=== PATIENT | female | born 1940 ===

== ENCOUNTER 2016-09-27 17:01 | Emergency (ER) | payer OTHER ==
[2016-09-27 17:56] LABS: BASO % 0.6 % (0.0-2.0); EOS # 0.2 K/uL (0.0-0.7); EOS % 3.5 % (0.0-4.0); LYMPH # 2.2 K/uL (1.0-4.3); LYMPH % 32.1 % (20.0-40.0); MEAN CELL VOLUME 91.1 fL (81.0-99.0); MEAN CORPUSCULAR HEMOGLOBIN 30.2 pg (27.0-31.0); MEAN CORPUSCULAR HGB CONC 33.1 g/dL (33.0-37.0); MEAN PLATELET VOLUME 8.4 fL (7.2-11.7); MONO # 0.8 K/uL (0.0-0.8); MONO % 12.1 % (0.0-10.0); NRBC % 0.1 % (0.0-2.0); RED CELL DISTRIBUTION WIDTH 14.8 % (11.5-14.5); WHITE BLOOD COUNT 6.7 K/uL (4.8-10.8)
[2016-09-27 18:05] LABS: CHLORIDE 101 mmol/L (98-107); SODIUM 139 mmol/L (132-148)
[2016-09-27 18:06] LABS: POTASSIUM 4.4 mmol/L (3.6-5.2)
[2016-09-27 18:07] LABS: CARBON DIOXIDE 30 mmol/L (22-30); CHOLESTEROL 207 mg/dL (0-199); GFR AFRICAN-AMERICAN > 60
[2016-09-27 18:08] LABS: ALB/GLOB RATIO 1.5 (1.0-2.1); ALKALINE PHOSPHATASE 55 U/L (38-126); ALT/SGPT 24 U/L (9-52); AST/SGOT 23 U/L (14-36); BILIRUBIN,TOTAL 0.5 mg/dL (0.2-1.3); BLOOD UREA NITROGEN 24 mg/dL (7-17); CALCIUM 8.8 mg/dl (8.6-10.4); GLUCOSE,RANDOM 92 mg/dL (65-105)
[2016-09-27 18:11] LABS: INR 1.2
--- NOTE | 2016-09-27 18:13 | CT ---
PROCEDURE: CT HEAD WITHOUT CONTRAST. HISTORY: dizzy x 5 days COMPARISON: None available. TECHNIQUE: Axial computed tomography images were obtained through the head/brain without intravenous contrast. Radiation dose: Total exam DLP = 1703.67 mGy-cm. This CT exam was performed using one or more of the following dose reduction techniques: Automated exposure control, adjustment of the mA and/or kV according to patient size, and/or use of iterative reconstruction technique. FINDINGS: HEMORRHAGE: No intracranial hemorrhage. BRAIN: No mass effect or edema. Mild atrophy and [id number] white matter changes. VENTRICLES: Unremarkable. No hydrocephalus. CALVARIUM: Unremarkable. PARANASAL SINUSES: Unremarkable as visualized. No significant inflammatory changes. MASTOID AIR CELLS: Unremarkable as visualized. No inflammatory changes. OTHER FINDINGS: None. IMPRESSION: Limited study due to patient's motion. No evidence of acute intracranial hemorrhage. 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
--- NOTE | 2016-09-27 18:50 | C.PDOC ---
History Of Present Illness 75 y/o female presents to the emergency department with complains of dizziness for the past 5 days, worse with climbing stairs. Pt denies headache, chest pain , fever, vomiting, SOB or any other complaints. Time Seen by Provider: 09/27/16 17:07 Chief Complaint (Nursing): Dizziness/Lightheaded History Per: Patient History/Exam Limitations: no limitations Onset/Duration Of Symptoms: Days Current Symptoms Are (Timing): Still Present Fall Associated With With Symptoms: No Severity: Mild Recent travel outside of the [place]: No - Symptoms Of CVA Recent Head Trauma: No Past Medical History Reviewed: Historical Data, Nursing Documentation, Vital Signs Vital Signs: Last Vital Signs Temp 98.6 F 09/27/16 17:05 Pulse 62 09/27/16 20:49 Resp 15 09/27/16 20:49 BP 146/54 L 09/27/16 20:49 Pulse Ox 96 09/27/16 21:58 - Medical History PMH: Atrial Fibrillation, Cardia Arrhythmia (unknown tachycardia), HTN, Pneumonia Family History: States: Unknown Family Hx - Social History Hx Alcohol Use: No Hx Substance Use: No Review Of Systems Except As Marked, All Systems Reviewed And Found Negative. Constitutional: Negative for: Fever, Chills Cardiovascular: Negative for: Chest Pain Respiratory: Negative for: Shortness of Breath Gastrointestinal: Negative for: Vomiting Neurological: Positive for: Dizziness. Negative for: Headache Physical Exam - Physical Exam Appears: Non-toxic, No Acute Distress, Other (obese) Skin: Warm, Dry, No Rash Head: Atraumatic, Normacephalic Eye(s): bilateral: Normal Inspection, PERRL, EOMI Neck: Normal, Normal ROM, Supple Chest: Symmetrical, No Tenderness Cardiovascular: Rhythm Regular, No Murmur Respiratory: Normal Breath Sounds, No Rales, No Rhonchi, No Wheezing Gastrointestinal/Abdominal: Normal Exam, Soft, No Tenderness Extremity: Normal ROM Extremity: Bilateral: Atraumatic Neurological/Psych: Oriented x3, Normal Speech, Normal Cognition ED Course And Treatment - Laboratory Results Result Diagrams: 09/27/16 17:42 09/27/16 17:42 Lab Interpretation: Normal (trop neg.) ECG: Interpreted By Ks ECG Rhythm: Sinus Rhythm ECG Interpretation: Normal Rate From EC O2 Sat by Pulse Oximetry: 96 (room air) Pulse Ox Interpretation: Normal - Radiology CXR: Interpreted by Me CXR Interpretation: Yes: No Acute Disease, Other (? mild CHF vs body habitus.) - CT Scan/US CT head Other Rad Studies (CT/US): Read By Radiologist, Radiology Report Reviewed CT/US Interpretation: IMPRESSION: Limited study due to patient's motion. No evidence of acute intracranial hemorrhage. 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 Progress Note: Plan: EKG, CT head, labs, CXR, meclizine, pepcid, zofran, BGL Reevaluation Time: 19:27 Reassessment Condition: Improved - Physician Consult Information Outcome Of Conversation: 193: d/w [facility]- Dr. Ortega ok to Tele obs. Medical Decision Making Medical Decision Making: dizziness, sob, SALAZAR may be cardiac or neuro in nature. w/u neg to this point. consider Cardiac and Neuro evals. 2199: evaled by Medicine- defer adm now and opt f/u to be arranged. Disposition Doctor Will See Patient In The: Hospital Counseled Patient/Family Regarding: Studies Performed, Diagnosis - Disposition Disposition: HOME/ ROUTINE Disposition Time: 19:28 Condition: GOOD - Clinical Impression Clinical Impression: Chest discomfort, Dizzinesses - Scribe Statement The provider has reviewed the documentation as recorded by the Maynor Pitts Provider Attestation: All medical record entries made by the Maynor were at my direction and personally dictated by me. I have reviewed the chart and agree that the record accurately reflects my personal performance of the history, physical exam, medical decision making, and the department course for this patient. I have also personally directed, reviewed, and agree with the discharge instructions and disposition.
[2016-09-27 19:19] LABS: RBC URINE < 1 /hpf (0-3); URINE BILIRUBIN NEGATIVE (NEGATIVE); URINE BLOOD NEGATIVE (NEGATIVE); URINE COLOR Yellow (YELLOW); URINE GLUCOSE (UA) NORMAL (Normal); URINE KETONE NEGATIVE (NEGATIVE); URINE LEUKOCYTE ESTERASE NEG Leu/uL (Negative); URINE PROTEIN NEGATIVE (NEGATIVE); URINE UROBILINOGEN NORMAL mg/dL (0.2-1.0); WBC URINE 2 /hpf (0-5)
--- NOTE | 2016-09-27 19:24 | C.PDOC ---
Time Seen by Provider: 09/27/16 17:07 Chief Complaint (Nursing): Dizziness/Lightheaded Past Medical History Vital Signs: Last Vital Signs Temp 98.6 F 09/27/16 17:05 Pulse 70 09/27/16 17:05 Resp 20 09/27/16 17:05 BP 138/69 09/27/16 17:05 Pulse Ox 96 09/27/16 17:05 - Medical History PMH: Atrial Fibrillation, Cardia Arrhythmia (unknown tachycardia), HTN, Pneumonia Family History: States: Unknown Family Hx - Social History Hx Alcohol Use: No Hx Substance Use: No ED Course And Treatment - Laboratory Results Result Diagrams: 09/27/16 17:42 09/27/16 17:42 O2 Sat by Pulse Oximetry: 96
[2016-09-27] MEDS ORDERED: Aspirin 325 mg EC Tablets PO STA (19:42)
--- NOTE | 2016-09-27 20:52 | CP.PCM.HP ---
History of Present Illness - History of Present Illness History of Present Illness: CC - "Headache x 5 days" HPI - 75 year old female with a past medical history Afib, cataracts, osteoporosis, hypertension present today complaining of dizziness and headache for 5 days. She states this is on and off. She denies acute visual changes but states she has bad vision due to cataracts and was evaluation by an administrative resources associate recently. She said she feeling tired and admits to shortness of breath with exertion such as walking a few blocks or going up stairs. She denies swelling in the legs. Per daughter she has had a nonproductive cough today. She admits to generalized weakness. She denies recent illlness, sick contacts, fever, chills, chest pain, palpitations, shortness of breath, abd pain, vomiting, diarrhea/constipation, numbness or tingling. PMHx - Afib, cataracts, osteoporosis, hypertension Surg - denies Fam Hx - sister has vaginal cancer, ho hx of stroke, heart disease, NC, DM Meds - Xarelto 20mg PO daily. Metorpolol 25 mg PO daily, Bisphophenate weekly on Fridays Allergies - NKDA Social - denies tobacco, alcohol, or drug use. From the [place]. Lives here with her daughter for about 6 months out of the year PMD - none but has been seen at 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 absent: Chest Pain, Chest Pain at Rest, Leg Edema, Palpitations, Syncope - Respiratory Respiratory: Cough (nonproductive), Dyspnea on Exertion. absent: Dyspnea - Gastrointestinal Gastrointestinal: absent: Abdominal Pain, Constipation, Diarrhea, Nausea, Vomiting - Genitourinary Genitourinary: absent: Change in Urinary Stream, Difficulty Urinating - Musculoskeletal Musculoskeletal: absent: Numbness, Tingling Additional comments: R knee pain, chronic pains from arthritis - Neurological Neurological: Dizziness, Headaches. absent: Numbness, Syncope, Tingling, Weakness Past Patient History - Infectious Disease Hx of Infectious Diseases: None - Past Social History Smoking Status: Never Smoked - CARDIAC Hx Atrial Fibrillation: Yes Hx Cardia Arrhythmia: Yes (unknown tachycardia) Hx Hypertension: Yes - PULMONARY Hx Pneumonia: Yes - PSYCHIATRIC Hx Substance Use: No - SURGICAL HISTORY Hx Surgeries: No Meds Allergies/Adverse Reactions: Allergies Allergy/AdvReac Type Severity Reaction Status Date / Time No Known Allergies Allergy Verified 09/27/16 17:25 Results - Vital Signs Recent Vital Signs: Last Vital Signs Temp 98.6 F 09/27/16 17:05 Pulse 70 09/27/16 17:05 Resp 20 09/27/16 17:05 BP 138/69 09/27/16 17:05 Pulse Ox 96 09/27/16 19:43 - Labs Result Diagrams: 09/27/16 17:42 09/27/16 17:42 Assessment & Plan - Assessment and Plan (Free Text) Assessment: 75 year old female with a past medical history of Afib, HTN, osteoporosis, and arthritis presents for dizziness and LIM for 5 days: Plan: Atrial fibrillation Denies palpitations or chest pain on examination but per ED complained of chest discomfort NSR on Monitor Troponin negative, will follow up with serial troponins and EKG EKG - NSR at 66 bpm HbA1c 5.9 Tchol 207, Trig 123, LDL 136, HDL 37 f/u Echo f/u orthostatic vitals Xarelto 20mg PO - takes in the mornings Admit to telemetry f/u am labs, TSH Free T4 Hypertension controlled monitor Home med: Metoprolol 25 mg PO daily Will hold as patient is dizzy and HR is in the low 60s Osteoporosis Tylenol prn pain Takes bisphosphenate once weekly on Friday mornings - took dose today Prophylactic measures GI - not indicated DVT - on Xarelto daily Heart healthy diet
[2016-09-27 22:23] VITALS: BP 144/64; PULSE 64; RESP 14; TEMP 97.8; O2SAT 99
--- NOTE | 2016-09-28 19:56 | RAD ---
HISTORY: dizzy COMPARISON: No prior. FINDINGS: LUNGS: Poor inspiration with low lung volumes and crowded bronchovascular markings and minor bibasilar atelectasis right greater than left. Right lower lobe infiltrate not excluded therefore followup radiographs recommended PLEURA: No significant pleural effusion identified, no pneumothorax apparent. CARDIOVASCULAR: Heart is borderline/mildly enlarged OSSEOUS STRUCTURES: No significant abnormalities. VISUALIZED UPPER ABDOMEN: Normal. OTHER FINDINGS: None. IMPRESSION: Poor inspiration with low lung volumes and crowded bronchovascular markings and minor bibasilar atelectasis right greater than left. Right lower lobe infiltrate could be excluded with followup radiographs. . This report was placed folder in PA review for followup.
--- NOTE | 2016-09-30 12:59 | CARD ---
APPROVED REPORT EKG Measurement Heart [id number] <Conclusion> Normal sinus rhythm Normal ECG
== END 2016-09-27 22:22 | disposition left against medical advice (07) ==
LOC: C.ER 17:01 → UNDOADMOB 19:41 → C.9E 19:41 → C.5T 22:04 → C.9E 22:04 → C.5T 22:17 → C.9E 22:17 → C.ER 22:22 → C.9E 09-28 18:38 → C.5T 09-28 18:38
DX: R42 Dizziness and giddiness (principal); R07.89 Other chest pain
CPT/HCPCS: 70450; 71010; 80053; 80061; 81001; 82948; 83036; 84484; 85025; 85610; 85730; 93005; 96374; 96375; 99285; J2405

== ENCOUNTER 2016-10-02 14:51 | Emergency (ER) | payer OTHER ==
[2016-10-02 14:59] VITALS: BP 120/76; PULSE 74; RESP 18; TEMP 98.2; O2SAT 100
--- NOTE | 2016-10-02 15:25 | C.PDOC ---
History Of Present Illness 75 y/o female presents to ED who was seen and evaluated in the ER last Friday ( 5 days ago) for SOB, dizziness, lightheadedness, nausea - full workup including CXR, discharged home with viral syndrome dx. Since then, patient reports symptoms have resolved, and that she feels much better. However, patient reports she got a phone call today informing her that the chest x-ray could not rule out RLL infiltrate. She denies any physical complaints on arrival; denies cough, congestion, fever, chills, or other associated symptoms. Time Seen by Provider: 10/02/16 15:15 Chief Complaint (Nursing): Abnormal Labs History Per: Patient History/Exam Limitations: no limitations Current Symptoms Are (Timing): Gone Reports Recently: Seen In ED Recent travel outside of the [place]: No Past Medical History Reviewed: Historical Data, Nursing Documentation, Vital Signs Vital Signs: Last Vital Signs Temp 98.2 F 10/02/16 14:58 Pulse 74 10/02/16 14:58 Resp 18 10/02/16 14:58 BP 120/76 10/02/16 14:58 Pulse Ox 100 10/02/16 15:26 - Medical History PMH: Atrial Fibrillation, Cardia Arrhythmia (unknown tachycardia), HTN, Pneumonia Family History: States: Unknown Family Hx - Social History Hx Alcohol Use: No Hx Substance Use: No Review Of Systems Constitutional: Negative for: Fever, Chills ENT: Negative for: Nose Congestion Cardiovascular: Negative for: Chest Pain Respiratory: Negative for: Cough, Shortness of Breath, Wheezing Gastrointestinal: Negative for: Nausea, Vomiting, Abdominal Pain Skin: Negative for: Rash Neurological: Negative for: Headache, Dizziness Physical Exam - Physical Exam Appears: Non-toxic, No Acute Distress Skin: Normal Color, Warm, Dry Head: Atraumatic, Normacephalic Oral Mucosa: Moist Chest: Symmetrical Cardiovascular: Rhythm Regular Respiratory: Normal Breath Sounds, No Rales, No Rhonchi, No Wheezing Gastrointestinal/Abdominal: Soft, No Tenderness, No Guarding, No Rebound Back: Normal Inspection Extremity: Normal ROM, Capillary Refill (< 2 sec. ) Neurological/Psych: Oriented x3, Normal Speech, Normal Cognition ED Course And Treatment O2 Sat by Pulse Oximetry: 100 (RA) Pulse Ox Interpretation: Normal - Radiology CXR: Viewed By Me, Read By Radiologist CXR Interpretation: Yes: No Acute Disease Disposition - Disposition Disposition: HOME/ ROUTINE Disposition Time: 16:01 Condition: IMPROVED Instructions: Normal Exam (ED) - Clinical Impression Clinical Impression: Normal exam - Scribe Statement The provider has reviewed the documentation as recorded by the Maynor Minor Provider Attestation: All medical record entries made by the Maynor were at my direction and personally dictated by me. I have reviewed the chart and agree that the record accurately reflects my personal performance of the history, physical exam, medical decision making, and the department course for this patient. I have also personally directed, reviewed, and agree with the discharge instructions and disposition.
--- NOTE | 2016-10-02 15:59 | RAD ---
HISTORY: follow up CXR r/o RLL infiltrate COMPARISON: 09/27/2016 TECHNIQUE: Chest PA and lateral FINDINGS: LUNGS: No active pulmonary disease. PLEURA: No significant pleural effusion identified. No pneumothorax apparent. CARDIOVASCULAR: Normal. OSSEOUS STRUCTURES: No significant abnormalities. VISUALIZED UPPER ABDOMEN: Normal. OTHER FINDINGS: None. IMPRESSION: No active disease.
== END 2016-10-02 16:16 | disposition home or self-care (01) ==
LOC: C.ER 14:51
DX: Z00.00 Encounter for general adult medical examination without abnormal findings (principal)

== ENCOUNTER 2016-10-27 11:44 | Observation (INO) | payer OTHER, SELFPAY ==
[2016-10-27 12:02] VITALS: BMI 33.3
[2016-10-27 12:39] LABS: BASO % 0.5 % (0.0-2.0); EOS # 0.2 K/uL (0.0-0.7); EOS % 2.3 % (0.0-4.0); HEMATOCRIT 45.7 % (34.0-47.0); LYMPH # 2.1 K/uL (1.0-4.3); LYMPH % 26.5 % (20.0-40.0); MEAN CELL VOLUME 92.1 fL (81.0-99.0); MEAN CORPUSCULAR HEMOGLOBIN 30.2 pg (27.0-31.0); MEAN CORPUSCULAR HGB CONC 32.7 g/dL (33.0-37.0); MEAN PLATELET VOLUME 8.8 fL (7.2-11.7); MONO # 0.9 K/uL (0.0-0.8); MONO % 10.9 % (0.0-10.0); RED CELL DISTRIBUTION WIDTH 14.6 % (11.5-14.5)
[2016-10-27 12:47] LABS: CHLORIDE 106 mmol/L (98-107)
[2016-10-27 12:48] LABS: SODIUM 147 mmol/L (132-148)
[2016-10-27 12:49] LABS: POTASSIUM 4.4 mmol/L (3.6-5.2)
[2016-10-27 12:51] LABS: ALB/GLOB RATIO 1.1 (1.0-2.1); ALKALINE PHOSPHATASE 54 U/L (38-126); ALT/SGPT 26 U/L (9-52); AST/SGOT 27 U/L (14-36); BILIRUBIN,TOTAL 0.4 mg/dL (0.2-1.3); BLOOD UREA NITROGEN 23 mg/dL (7-17); CARBON DIOXIDE 30 mmol/L (22-30); GFR AFRICAN-AMERICAN > 60; GLUCOSE,RANDOM 116 mg/dL (65-105); TOTAL PROTEIN 7.4 g/dL (6.3-8.3)
[2016-10-27 12:52] LABS: CALCIUM 9.8 mg/dl (8.6-10.4)
--- NOTE | 2016-10-27 13:02 | C.PDOC ---
History Of Present Illness Patient is a 75 y/o female, whose PMHx includes Afib, that presents to the ED for evaluation of palpitations since last night. Patient states that she woke up this morning feeling weak, and lightheaded. Patient also reports shortness of breath with excertion, but denies any chest pain. Patient states she is compliant with her Xarelto, and Metoprolol 25mg once a day. Otherwise, denies any fever, chills, cough, swelling, abdominal pain, nausea, vomiting, or any other associated symptoms at this time. Time Seen by Provider: 10/27/16 12:15 Chief Complaint (Nursing): Palpitations History Per: Patient History/Exam Limitations: no limitations Onset/Duration Of Symptoms: Days (1) Current Symptoms Are (Timing): Still Present Associated Symptoms: denies: Chest Pain, Blurred Vision, Focal Weakness, Headache Recent travel outside of the [place]: No Additional History Per: Patient Past Medical History Reviewed: Historical Data, Nursing Documentation, Vital Signs Vital Signs: Last Vital Signs Temp 98.2 F 10/27/16 12:19 Pulse 118 H 10/27/16 12:55 Resp 12 10/27/16 12:55 BP 115/58 L 10/27/16 12:55 Pulse Ox 97 10/27/16 13:13 - Medical History PMH: Atrial Fibrillation, Cardia Arrhythmia (unknown tachycardia), HTN, Pneumonia Family History: States: Unknown Family Hx - Social History Hx Alcohol Use: No Hx Substance Use: No - Immunization History Hx Tetanus Toxoid Vaccination: No Hx Influenza Vaccination: No Hx Pneumococcal Vaccination: No Review Of Systems Except As Marked, All Systems Reviewed And Found Negative. Constitutional: Positive for: Weakness. Negative for: Fever, Chills Cardiovascular: Positive for: Palpitations, Light Headedness. Negative for: Chest Pain Respiratory: Positive for: SOB with Excertion. Negative for: Cough Gastrointestinal: Negative for: Nausea, Vomiting, Abdominal Pain Neurological: Negative for: Headache, Dizziness Physical Exam - Physical Exam Appears: Non-toxic, No Acute Distress Skin: Normal Color, Warm, Dry Head: Atraumatic, Normacephalic Eye(s): bilateral: Normal Inspection, EOMI Neck: Normal ROM, Supple Chest: Symmetrical, No Tenderness Cardiovascular: Rhythm Irregular (irregularly irregular) Respiratory: Normal Breath Sounds, No Rales, No Rhonchi, No Wheezing Gastrointestinal/Abdominal: Soft, No Tenderness, Other (obese abdomen) Extremity: Normal ROM, No Pedal Edema, Capillary Refill (<2 sec.), No Deformity , No Swelling Neurological/Psych: Oriented x3, Normal Speech, Normal Cognition ED Course And Treatment - Laboratory Results Result Diagrams: 10/27/16 12:30 10/27/16 12:30 Lab Interpretation: Abnormal Interpretation Of Abnormal: BUN 23, BNP 2650, Troponnin normal, TSH normal. ECG: Interpreted By Me ECG Rhythm: Atrial Fibrillation (with rapid ventricular responseQ wave V1 c/w possible old anterior infarct.) O2 Sat by Pulse Oximetry: 97 (on RA) Pulse Ox Interpretation: Normal - Radiology CXR: Interpreted by Me CXR Interpretation: Yes: Cardiomegaly (with vascular congestion) Progress Note: Labs, EKG ordered and reviewed. Patient was given IV Cardizem in the ER. Reevaluation Time: 13:11 Reassessment Condition: Improved (Heart rate decresed after Cardizem 10mg IVP. BP initially decresed to 86/50 but improved with normal saline bolus.) - Physician Consult Information Time Consulting Physician Contacted: 13:12 Physician Contacted: Garrett Parks Outcome Of Conversation: Patient to be admitted for rapid atrial fibrillation. Disposition - Disposition Disposition: HOSPITALIZED Disposition Time: 13:12 Condition: IMPROVED - POA Present On Arrival: None - Clinical Impression Clinical Impression: Paroxysmal atrial fibrillation with rapid ventricular response - Scribe Statement The provider has reviewed the documentation as recorded by the Maynor Arshad Provider Attestation: All medical record entries made by the Emilianoibdave were at my direction and personally dictated by me. I have reviewed the chart and agree that the record accurately reflects my personal performance of the history, physical exam, medical decision making, and the department course for this patient. I have also personally directed, reviewed, and agree with the discharge instructions and disposition.
[2016-10-27 13:03] LABS: RBC URINE 2 /hpf (0-3); URINE BILIRUBIN NEGATIVE (NEGATIVE); URINE BLOOD NEGATIVE (NEGATIVE); URINE COLOR Yellow (YELLOW); URINE GLUCOSE (UA) NORMAL (Normal); URINE KETONE NEGATIVE (NEGATIVE); URINE LEUKOCYTE ESTERASE 2+ Leu/uL (Negative); URINE PROTEIN NEGATIVE (NEGATIVE); URINE UROBILINOGEN NORMAL mg/dL (0.2-1.0); WBC URINE 5 /hpf (0-5)
[2016-10-27 13:22] LABS: THYROID STIMULATING HORMONE 0.61 mIU/L (0.46-4.68)
[2016-10-27] MEDS ORDERED: Digoxin 250 mcg (0.25 mg) Tab PO STA (13:43)
--- NOTE | 2016-10-27 14:03 | RAD ---
HISTORY: atrial fib COMPARISON: 10/02/2016 FINDINGS: LUNGS: There is mild pulmonary venous congestion. No focal consolidation PLEURA: No significant pleural effusion identified, no pneumothorax apparent. CARDIOVASCULAR: There is persistent mild cardio OSSEOUS STRUCTURES: No significant abnormalities. VISUALIZED UPPER ABDOMEN: Normal. OTHER FINDINGS: None. IMPRESSION: No acute findings. Mild pulmonary venous congestion and mild cardiomegaly.
[2016-10-27] MEDS ORDERED: Digoxin 500 mcg/2ml (0.5 mg/2ml) Inj IVP ONE (14:06)
[2016-10-27] MEDS ORDERED: Digoxin 500 mcg/2ml (0.5 mg/2ml) Inj ONE (14:25)
[2016-10-27 15:46] LABS: CHOLESTEROL 182 mg/dL (0-199)
[2016-10-27 16:05] LABS: INR 1.5
[2016-10-27 16:22] LABS: CHOLESTEROL 151 mg/dL (0-199)
[2016-10-27] MEDS ORDERED: Digoxin 250 mcg (0.25 mg) Tab PO SCH (18:00)
[2016-10-27 18:04] VITALS: PULSE 116
--- NOTE | 2016-10-27 19:03 | CP.PCM.CON ---
History of Present Illness - History of Present Illness History of Present Illness: 75 year old with HTN, prior diagnosis of paroxysmal A fib, admitted with palpitation, a fib, on xarelto, , 2 mos ago echo with nl LV, NL TSH now, rate controlled, d/c digoxin, observe Review of Systems - Review of Systems Systems not reviewed;Unavailable: Unstable Vital Signs - Constitutional Constitutional: Anorexia, Weakness - EENT Eyes: absent: Discharge Ears: absent: Ear Discharge Nose/Mouth/Throat: absent: Epistaxis - Cardiovascular Cardiovascular: Palpitations. absent: Acrocyanosis, Chest Pain, Diaphoresis, Leg Edema, Syncope - Respiratory Respiratory: Cough. absent: Dyspnea, Hemoptysis, Pain on Inspiration - Gastrointestinal Gastrointestinal: absent: Abdominal Pain, Cramping, Diarrhea, Vomiting - Genitourinary Genitourinary: absent: Change in Urinary Stream Past Patient History - Infectious Disease Hx of Infectious Diseases: None - Past Social History Smoking Status: Never Smoked - CARDIAC Hx Atrial Fibrillation: Yes Hx Cardia Arrhythmia: Yes (unknown tachycardia) Hx Hypertension: Yes - PULMONARY Hx Pneumonia: Yes - PSYCHIATRIC Hx Substance Use: No - SURGICAL HISTORY Hx Surgeries: No - ANESTHESIA Hx Anesthesia: No Meds Allergies/Adverse Reactions: Allergies Allergy/AdvReac Type Severity Reaction Status Date / Time No Known Allergies Allergy Verified 10/27/16 12:15 - Medications Medications: Current Medications Diltiazem HCl (Cardizem) 30 mg PO QID PENDING SALE TO [facility] Last Admin: 10/27/16 18:02 Dose: 30 mg Metoprolol Tartrate (Lopressor) 50 mg PO BID PENDING [facility] Rivaroxaban (Xarelto) 20 mg PO DAILY [facility]ENDING [facility] Last Admin: 10/27/16 15:50 Dose: Not Given Rosuvastatin Calcium (Crestor) 10 mg PO [facility] Physical Exam - Constitutional Appears: Non-toxic - Head Exam Head Exam: ATRAUMATIC - Eye Exam Eye Exam: EOMI - ENT Exam ENT Exam: Mucous Membranes Moist - Neck Exam Neck exam: Negative for: Lymphadenopathy, Thyromegaly - Respiratory Exam Respiratory Exam: Clear to Auscultation Bilateral. absent: Rales - Cardiovascular Exam Cardiovascular Exam: Irregular Rhythm, Systolic Murmur - GI/Abdominal Exam GI & Abdominal Exam: Normal Bowel Sounds. absent: Organomegaly - Rectal Exam Rectal Exam: Deferred - Extremities Exam Extremities exam: Positive for: normal capillary refill. Negative for: calf tenderness - Neurological Exam Neurological exam: Alert, Oriented x3 - Psychiatric Exam Psychiatric exam: Normal Mood - Skin Skin Exam: Dry Results - Vital Signs Recent Vital Signs: Last Vital Signs Temp 97.3 F L 10/27/16 17:19 Pulse 65 10/27/16 17:19 Resp 20 10/27/16 17:19 BP 119/66 10/27/16 17:19 Pulse Ox 95 10/27/16 17:19 - Labs Result Diagrams: 10/27/16 12:30 10/27/16 12:30 Labs: Laboratory Results - last 24 hr 10/27/16 10/27/16 15:50 15:50 PT 17.1 H INR 1.5 APTT 43 H Total Creatine Kinase 33 CK-MB (Mass) 0.41 Troponin I, Quant < 0.0120 Triglycerides 267 H Cholesterol 151 LDL Cholesterol Direct 94 HDL Cholesterol 23 L Assessment & Plan (1) Paroxysmal atrial fibrillation with rapid ventricular response Status: Acute Comment: rate controlled, d/c dig, b dario
[2016-10-27] MEDS ORDERED: Pantoprazole 40 mg EC Tab PO ONE (22:45)
--- NOTE | 2016-10-27 23:34 | CP.PCM.HP ---
History of Present Illness - History of Present Illness History of Present Illness: CC: Dizziness, Light headedness, SOB with exertion Patient is a 75 y/o female, whose PMHx includes Afib, that presents to the ED for evaluation of palpitations since last night. Patient states that she woke up this morning feeling weak, and lightheaded. Patient also reports shortness of breath with excertion, but denies any chest pain. Patient states she is compliant with her Xarelto, and Metoprolol 25mg once a day. Otherwise, denies any fever, chills, cough, swelling, abdominal pain, nausea, vomiting, or any other associated symptoms at this time.pt was in rapid A.fib when i saw in ER , hypotensive, was given fluid blous, initially was given cardizem then digoxin and pt responded Present on Admission - Present on Admission Any Indicators Present on Admission: Yes History of DVT/PE: No History of Uncontrolled Diabetes: No Review of Systems - Review of Systems Systems not reviewed;Unavailable: Acuity of Condition - Constitutional Constitutional: Fatigue, Weakness - EENT Eyes: absent: As Per HPI, Blind Spots, Blurred Vision, Change in Vision, Decreased Night Vision, Diplopia, Discharge, Dry Eye, Exophthalmos, Floaters, Irritation, Itchy Eyes, Loss of Peripheral Vision, Pain, Photophobia, Requires Corrective Lenses, Sees Flashes, Spots in Vision, Tunnel Vision, Other Visual Disturbances, Loss of Vision, Other - Cardiovascular Cardiovascular: Dyspnea, Dyspnea on Exertion, Lightheadedness - Respiratory Respiratory: absent: As Per HPI, Cough, Dyspnea, Hemoptysis, Dyspnea on Exertion , Wheezing, Snoring, Stridor, Pain on Inspiration, Chest Congestion, Excessive Mucous Production, Change in Mucous Color, Pain with Coughing, Other - Gastrointestinal Gastrointestinal: absent: As Per HPI, Abdominal Pain, Belching, Bloating, Change in Bowel Habits, Change in Stool Character, Coffee Ground Emesis, Constipation, Cramping, Diarrhea, Dyspepsia, Dysphagia, Early Satiety, Excessive Flatus, Fecal Incontinence, Heartburn, Hematemesis, Hematochezia, Loose Stools, Melena, Nausea, Odynophagia, Temesmus, Vomiting, Other - Genitourinary Genitourinary: absent: As Per HPI, Change in Urinary Stream, Difficulty Urinating, Dysuria, Flank Pain, Hematuria, Pyuria, Nocturia, Urinary Incontinence, Urinary Frequency, Urinary Hesitance, Urinary Urgency, Voiding Freq/Small Amts, Freq UTI, Hx Renal/Bladder Calculi, Hx /Renal Surgery, Bladder Distension, Other Past Patient History - Infectious Disease Hx of Infectious Diseases: None - Past Medical History & Family History Past Medical History?: Yes - Past Social History Smoking Status: Never Smoked - CARDIAC Hx Cardiac Disorders: Yes Hx Atrial Fibrillation: Yes Hx Cardia Arrhythmia: Yes (unknown tachycardia) Hx Hypertension: Yes - PULMONARY Hx Respiratory Disorders: Yes Hx Pneumonia: Yes - NEUROLOGICAL Hx Neurological Disorder: No - HEENT Hx HEENT Problems: No - RENAL Hx Chronic Kidney Disease: No - ENDOCRINE/METABOLIC Hx Endocrine Disorders: No - HEMATOLOGICAL/ONCOLOGICAL Hx Blood Disorders: No - INTEGUMENTARY Hx Dermatological Problems: No - MUSCULOSKELETAL/RHEUMATOLOGICAL Hx Musculoskeletal Disorders: No - GASTROINTESTINAL Hx Gastrointestinal Disorders: No - GENITOURINARY/GYNECOLOGICAL Hx Genitourinary Disorders: No - PSYCHIATRIC Hx Psychophysiologic Disorder: No Hx Substance Use: No - SURGICAL HISTORY Hx Surgeries: No - ANESTHESIA Hx Anesthesia: No Meds Home Medications: Home Medication List Medication Instructions Recorded Confirmed Type Metoprolol Tartrate [Lopressor] 50 mg PO BID #60 tab 10/28/16 Rx diltiaZEM CD [Cardizem CD] 120 mg PO DAILY #30 c24 10/28/16 Rx Allergies/Adverse Reactions: Allergies Allergy/AdvReac Type Severity Reaction Status Date / Time No Known Allergies Allergy Verified 10/27/16 12:15 Physical Exam - Constitutional Appears: No Acute Distress - Head Exam Head Exam: ATRAUMATIC, NORMAL INSPECTION, NORMOCEPHALIC - Eye Exam Eye Exam: EOMI, Normal appearance, PERRL Pupil Exam: NORMAL ACCOMODATION, PERRL - Respiratory Exam Respiratory Exam: Clear to Auscultation Bilateral, NORMAL BREATHING PATTERN - Cardiovascular Exam Cardiovascular Exam: Irregular Rhythm, +S1, +S2 - GI/Abdominal Exam GI & Abdominal Exam: Normal Bowel Sounds, Soft. absent: Tenderness - Rectal Exam Rectal Exam: NORMAL INSPECTION - Neurological Exam Neurological exam: Alert, CN II-XII Intact, Normal Gait, Oriented x3, Reflexes Normal Results - Vital Signs Recent Vital Signs: Last Vital Signs Temp 97.3 F L 10/27/16 17:19 Pulse 96 H 10/27/16 22:00 Resp 16 10/27/16 18:02 BP 127/74 10/27/16 22:00 Pulse Ox 95 10/27/16 17:19 - Labs Result Diagrams: 10/27/16 12:30 10/27/16 12:30 Labs: Laboratory Results - last 24 hr 10/27/16 10/27/16 15:50 15:50 PT 17.1 H INR 1.5 APTT 43 H Total Creatine Kinase 33 CK-MB (Mass) 0.41 Troponin I, Quant < 0.0120 Triglycerides 267 H Cholesterol 151 LDL Cholesterol Direct 94 HDL Cholesterol 23 L Assessment & Plan (1) Dizzinesses Status: Acute (2) Paroxysmal atrial fibrillation with rapid ventricular response Status: Acute
[2016-10-28 00:57] VITALS: RESP 20
[2016-10-28 08:03] VITALS: TEMP 97.4; O2SAT 97
[2016-10-28 10:25] VITALS: BP 120/63; PULSE 111
--- NOTE | 2016-10-28 12:03 | CP.PCM.PN ---
Subjective - Date & Time of Evaluation Date of Evaluation: 10/28/16 Time of Evaluation: 12:00 - Subjective Subjective: stable clinically, rate controlled on b dario, no digoxin, on NOAG Objective - Vital Signs/Intake and Output Vital Signs (last 24 hours): Temp Pulse Resp BP Pulse Ox 97.4 F L 111 H 20 120/63 97 10/28/16 07:10 10/28/16 10:25 10/28/16 07:10 10/28/16 10:25 10/28/16 07:10 - Medications Medications: Current Medications Digoxin (Lanoxin) 0.25 mg PO DAILY@1800 [facility] Diltiazem HCl (Cardizem) 30 mg PO QID [facility] Last Admin: 10/28/16 10:23 Dose: 30 mg Metoprolol Tartrate (Lopressor) 50 mg PO BID [facility] Last Admin: 10/28/16 10:23 Dose: 50 mg Rivaroxaban (Xarelto) 20 mg PO DAILY [facility] Last Admin: 10/28/16 10:23 Dose: 20 mg Rosuvastatin Calcium (Crestor) 10 mg PO HS [facility] Last Admin: 10/27/16 21:58 Dose: 10 mg - Labs Labs: PT 17.1 SECONDS (9.7-12.2) H 10/27/16 15:50 INR 1.5 10/27/16 15:50 APTT 43 SECONDS (21-34) H 10/27/16 15:50 - Constitutional Appears: Non-toxic - Head Exam Head Exam: ATRAUMATIC - Eye Exam Eye Exam: EOMI - ENT Exam ENT Exam: Mucous Membranes Moist - Neck Exam Neck Exam: absent: Lymphadenopathy, Thyromegaly - Respiratory Exam Respiratory Exam: Clear to Ausculation Bilateral. absent: Rales - Cardiovascular Exam Cardiovascular Exam: Irregular Rhythm, Murmur - Rectal Exam Rectal Exam: Deferred - Extremities Exam Extremities Exam: Normal Capillary Refill. absent: Calf Tenderness - Neurological Exam Neurological Exam: Alert, Oriented x3 - Psychiatric Exam Psychiatric exam: Normal Mood - Skin Skin Exam: Dry Assessment and Plan (1) Paroxysmal atrial fibrillation with rapid ventricular response Status: Acute
--- NOTE | 2016-10-28 12:58 | CP.PCM.PN ---
Subjective - Date & Time of Evaluation Date of Evaluation: 10/28/16 Time of Evaluation: 11:00 - Subjective Subjective: Awake, alert, denies sob or chest pains, NAD. Objective - Vital Signs/Intake and Output Vital Signs (last 24 hours): Temp Pulse Resp BP Pulse Ox 97.4 F L 111 H 20 120/63 97 10/28/16 07:10 10/28/16 10:25 10/28/16 07:10 10/28/16 10:25 10/28/16 07:10 - Medications Medications: Current Medications Diltiazem HCl (Cardizem) 30 mg PO QID [facility] Last Admin: 10/28/16 10:23 Dose: 30 mg Metoprolol Tartrate (Lopressor) 50 mg PO BID [facility] Last Admin: 10/28/16 10:23 Dose: 50 mg Rivaroxaban (Xarelto) 20 mg PO DAILY [facility] Last Admin: 10/28/16 10:23 Dose: 20 mg Rosuvastatin Calcium (Crestor) 10 mg PO HS [facility] Last Admin: 10/27/16 21:58 Dose: 10 mg - Labs Labs: PT 17.1 SECONDS (9.7-12.2) H 10/27/16 15:50 INR 1.5 10/27/16 15:50 APTT 43 SECONDS (21-34) H 10/27/16 15:50 Assessment and Plan - Assessment and Plan (Free Text) Assessment: Patient is seen and examined. No sob or chest pains, heart rate decreased to 108 -110e, NAD. Cleared by DR Minor for discharge home on cardizem and metoprolol. Advised to follow up in theoffice in 1 week.
--- NOTE | 2016-10-28 14:03 | CARD ---
APPROVED REPORT EKG Measurement Heart [id number] <Conclusion> Atrial fibrillation with rapid ventricular response Possible Anterior infarct, age undetermined Abnormal ECG
[2016-10-28] MEDS ORDERED: Digoxin 250 mcg (0.25 mg) Tab PO SCH (18:00)
--- NOTE | 2016-10-29 21:43 | CP.PCM.PN ---
Subjective - Date & Time of Evaluation Date of Evaluation: 10/28/16 Time of Evaluation: 19:00 - Subjective Subjective: Patient is seen and examined. No sob or chest pains, hear rate decreased to 108- 110e, NAD. Cleared by cardiology for discharge home on cardizem and metoprolol. Objective - Vital Signs/Intake and Output Vital Signs (last 24 hours): Temp Pulse Resp BP Pulse Ox 97.4 F L 111 H 20 120/63 97 10/28/16 07:10 10/28/16 10:25 10/28/16 07:10 10/28/16 10:25 10/28/16 07:10 - Labs Labs: PT 17.1 SECONDS (9.7-12.2) H 10/27/16 15:50 INR 1.5 10/27/16 15:50 APTT 43 SECONDS (21-34) H 10/27/16 15:50 - Constitutional Appears: No Acute Distress - Head Exam Head Exam: ATRAUMATIC, NORMAL INSPECTION, NORMOCEPHALIC - Eye Exam Eye Exam: EOMI, Normal appearance, PERRL Pupil Exam: NORMAL ACCOMODATION, PERRL - Respiratory Exam Respiratory Exam: Clear to Ausculation Bilateral, NORMAL BREATHING PATTERN - Cardiovascular Exam Cardiovascular Exam: Irregular Rhythm - GI/Abdominal Exam GI & Abdominal Exam: Soft, Normal Bowel Sounds. absent: Tenderness Assessment and Plan (1) Dizzinesses Status: Acute (2) Paroxysmal atrial fibrillation with rapid ventricular response Status: Acute
--- NOTE | 2016-10-29 21:44 | CP.PCM.DIS ---
Provider - Provider Date of Admission: 10/27/16 13:25 Attending physician: Garrett Parks MD Time Spent in preparation of Discharge (in minutes): 39 Hospital Course - Lab Results Lab Results: Most Recent Lab Values WBC 8.0 K/uL (4.8-10.8) 10/27/16 12:30 RBC 4.97 Mil/uL (3.80-5.20) 10/27/16 12:30 Hgb 15.0 g/dL (11.0-16.0) 10/27/16 12:30 Hct 45.7 % (34.0-47.0) 10/27/16 12:30 MCV 92.1 fL (81.0-99.0) 10/27/16 12:30 MCH 30.2 pg (27.0-31.0) 10/27/16 12:30 MCHC 32.7 g/dL (33.0-37.0) L 10/27/16 12:30 RDW 14.6 % (11.5-14.5) H 10/27/16 12:30 Plt Count 286 K/uL (130-400) 10/27/16 12:30 MPV 8.8 fL (7.2-11.7) 10/27/16 12:30 Neut % (Auto) 59.8 % (50.0-75.0) 10/27/16 12:30 Lymph % (Auto) 26.5 % (20.0-40.0) 10/27/16 12:30 Refugio % (Auto) 10.9 % (0.0-10.0) H 10/27/16 12:30 Eos % (Auto) 2.3 % (0.0-4.0) 10/27/16 12:30 Baso % (Auto) 0.5 % (0.0-2.0) 10/27/16 12:30 Neut # 4.8 K/uL (1.8-7.0) 10/27/16 12:30 Lymph # 2.1 K/uL (1.0-4.3) 10/27/16 12:30 Refugio # 0.9 K/uL (0.0-0.8) H 10/27/16 12:30 Eos # 0.2 K/uL (0.0-0.7) 10/27/16 12:30 Baso # 0.0 K/uL (0.0-0.2) 10/27/16 12:30 PT 17.1 SECONDS (9.7-12.2) H 10/27/16 15:50 INR 1.5 10/27/16 15:50 APTT 43 SECONDS (21-34) H 10/27/16 15:50 Sodium 147 mmol/L (132-148) 10/27/16 12:30 Potassium 4.4 mmol/L (3.6-5.2) 10/27/16 12:30 Chloride 106 mmol/L (98-107) 10/27/16 12:30 Carbon Dioxide 30 mmol/L (22-30) 10/27/16 12:30 Anion Gap 15 (10-20) 10/27/16 12:30 BUN 23 mg/dL (7-17) H 10/27/16 12:30 Creatinine 0.9 MG/DL (0.7-1.2) 10/27/16 12:30 Est GFR ( Amer) > 60 10/27/16 12:30 Est GFR (Non-Af Amer) > 60 10/27/16 12:30 Random Glucose 116 mg/dL (65-105) H 10/27/16 12:30 Calcium 9.8 mg/dl (8.6-10.4) 10/27/16 12:30 Total Bilirubin 0.4 mg/dL (0.2-1.3) 10/27/16 12:30 AST 27 U/L (14-36) 10/27/16 12:30 ALT 26 U/L (9-52) 10/27/16 12:30 Alkaline Phosphatase 54 U/L (38-126) 10/27/16 12:30 Total Creatine Kinase 33 U/L (30-135) 10/27/16 15:50 CK-MB (Mass) 0.41 ng/mL (0.0-3.38) 10/27/16 15:50 Troponin I < 0.0120 ng/mL (0.00-0.120) 10/27/16 12:30 Troponin I, Quant < 0.0120 ng/mL (0.00-0.120) 10/27/16 15:50 NT-Pro-B Natriuret Pep 2650 pg/mL (0-900) H 10/27/16 12:30 Total Protein 7.4 g/dL (6.3-8.3) 10/27/16 12:30 Albumin 4.0 g/dL (3.5-5.0) 10/27/16 12:30 Globulin 3.5 gm/dL (2.2-3.9) 10/27/16 12:30 Albumin/Globulin Ratio 1.1 (1.0-2.1) 10/27/16 12:30 Triglycerides 267 mg/dL (0-149) H 10/27/16 15:50 Cholesterol 151 mg/dL (0-199) 10/27/16 15:50 LDL Cholesterol Direct 94 mg/dL (0-129) 10/27/16 15:50 HDL Cholesterol 23 mg/dL (30-70) L 10/27/16 15:50 Thyroxine (T4) 7.70 ug/dL (5.5-11.0) 10/27/16 12:30 T3 Uptake 36.0 % (23.0-41.0) 10/27/16 12:30 TSH 3rd Generation 0.61 mIU/L (0.46-4.68) 10/27/16 12:30 Urine Color Yellow (YELLOW) 10/27/16 12:30 Urine Clarity Hazy (Clear) 10/27/16 12:30 Urine pH 5.0 (5.0-8.0) 10/27/16 12:30 Ur Specific Anthony 1.024 (1.003-1.030) 10/27/16 12:30 Urine Protein Negative mg/dL (NEGATIVE) 10/27/16 12:30 Urine Glucose (UA) Normal mg/dL (Normal) 10/27/16 12:30 Urine Ketones Negative mg/dL (NEGATIVE) 10/27/16 12:30 Urine Blood Negative (NEGATIVE) 10/27/16 12:30 Urine Nitrate Negative (NEGATIVE) 10/27/16 12:30 Urine Bilirubin Negative (NEGATIVE) 10/27/16 12:30 Urine Urobilinogen Normal mg/dL (0.2-1.0) 10/27/16 12:30 Ur Leukocyte Esterase 2+ Mirian/uL (Negative) H 10/27/16 12:30 Urine WBC (Auto) 5 /hpf (0-5) 10/27/16 12:30 Urine RBC (Auto) 2 /hpf (0-3) 10/27/16 12:30 Ur Squamous Epith Cells 3 /hpf (0-5) 10/27/16 12:30 - Hospital Course Hospital Course: Pt was admitted with c/o dizziness, palpitation and SOB on exertion,known case of A.Fib, had rapid A.Fib with ventricular respobnse, was treated and pt responded well. Patient is seen and examined. No sob or chest pains, hear rate decreased to 108- 110e, NAD. Cleared by DR Minor for discharge home on cardizem and metoprolol. Discharge Exam - Head Exam Head Exam: ATRAUMATIC - Eye Exam Eye Exam: EOMI, Normal appearance, PERRL Pupil Exam: NORMAL ACCOMODATION, PERRL - ENT Exam ENT Exam: Mucous Membranes Moist - Respiratory Exam Respiratory Exam: Clear to PA & Lateral - Cardiovascular Exam Cardiovascular Exam: Irregular Rhythm, +S1, +S2 - GI/Abdominal Exam GI & Abdominal Exam: Normal Bowel Sounds - Rectal Exam Rectal Exam: Deferred Discharge Plan - Discharge Medications Prescriptions: diltiaZEM CD [Cardizem CD] 120 mg PO DAILY #30 c24 Metoprolol Tartrate [Lopressor] 50 mg PO BID #60 tab - Follow Up Plan Condition: IMPROVED Disposition: HOME/ ROUTINE Instructions: Metoprolol (By mouth), Diltiazem (By mouth), Atrial Fibrillation (DC) Additional Instructions: TAKE YOUR MEDICATIONS INSTRUCTED BY YOUR PMD. 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 IF SYMPTOMS PERSIST ,GO TO THE NEAREST EMERGENCY ROOM. Referrals: Garrett Parks MD [Staff Provider] - Vida Minor MD [Staff Provider] -
--- NOTE | 2016-11-04 12:40 | CARD ---
APPROVED REPORT EKG Measurement Heart [id number] <Conclusion> Atrial fibrillation with rapid ventricular response with premature ventricular or aberrantly conducted complexes Nonspecific T wave abnormality Abnormal ECG
== END 2016-10-28 14:11 | disposition home or self-care (01) ==
LOC: C.ER 11:44 → C.9E 13:25 → C.5T 15:34
PROVIDERS: ADMIT Internal Medicine; ATTEND Internal Medicine
DX: I48.0 Paroxysmal atrial fibrillation (principal); I10 Essential (primary) hypertension; Z87.01 Personal history of pneumonia (recurrent)
CPT/HCPCS: 71010; 80053; 80061; 81001; 83880; 84436; 84443; 84479; 84484; 85025; 85610; 85730; 93005; 96374; 96375; 97116; 97162; 97165; 97530; 99285; G0378; G8978; G8979; G8987; G8988; G8989; J1160

== ENCOUNTER 2017-04-24 12:06 | Observation (INO) | payer SELFPAY ==
[2017-04-24 12:07] VITALS: PULSE 116; BMI 33.3
--- NOTE | 2017-04-24 13:29 | RAD ---
HISTORY: SOB, upper back pain COMPARISON: Chest x-ray performed 10/27/16 TECHNIQUE: Chest, one view. FINDINGS: Examination limited by habitus. LUNGS: Mild pulmonary venous congestion. Right hilar prominence. Please note that chest x-ray has limited sensitivity for the detection of pulmonary masses. PLEURA: No significant pleural effusion identified. No definite pneumothorax . CARDIOVASCULAR: Heart size appears top normal. Atherosclerotic calcifications of the aorta. OSSEOUS STRUCTURES: Degenerative changes. VISUALIZED UPPER ABDOMEN: Unremarkable. OTHER FINDINGS: None. IMPRESSION: Mild pulmonary venous congestion. Right hilar prominence.
[2017-04-24 13:45] LABS: BASO % 0.5 % (0.0-2.0); EOS # 0.2 K/uL (0.0-0.7); EOS % 3.2 % (0.0-4.0); HEMATOCRIT 42.3 % (34.0-47.0); LYMPH % 18.4 % (20.0-40.0); MEAN CORPUSCULAR HEMOGLOBIN 31.7 pg (27.0-31.0); MEAN CORPUSCULAR HGB CONC 33.7 g/dL (33.0-37.0); MEAN PLATELET VOLUME 9.5 fL (7.2-11.7); MONO # 0.6 K/uL (0.0-0.8); MONO % 10.7 % (0.0-10.0); RED CELL DISTRIBUTION WIDTH 15.2 % (11.5-14.5); WHITE BLOOD COUNT 5.3 K/uL (4.8-10.8)
[2017-04-24 13:47] LABS: MEAN CELL VOLUME 94.2 fL (81.0-99.0)
[2017-04-24 13:55] LABS: INR 1.6
[2017-04-24 15:00] LABS: ALB/GLOB RATIO 1.2 (1.0-2.1); ALKALINE PHOSPHATASE 45 U/L (38-126); ALT/SGPT 40 U/L (9-52); AST/SGOT 26 U/L (14-36); BILIRUBIN,TOTAL 0.3 mg/dL (0.2-1.3); BLOOD UREA NITROGEN 21 mg/dL (7-17); CALCIUM 8.5 mg/dl (8.6-10.4); CARBON DIOXIDE 28 mmol/L (22-30); CHLORIDE 104 mmol/L (98-107); GFR AFRICAN-AMERICAN > 60; GLUCOSE,RANDOM 121 mg/dL (65-105); POTASSIUM 3.9 mmol/L (3.6-5.2); SODIUM 140 mmol/L (132-148); TOTAL PROTEIN 6.7 g/dL (6.3-8.3)
--- NOTE | 2017-04-24 15:40 | C.PDOC ---
History Of Present Illness 76 y/o female hx cardiac A-Fib presents to the ED c/o upper back pain and SOB. The patient denies fever, cough,nausea, and headache. Chief Complaint (Nursing): Back Pain History Per: Patient History/Exam Limitations: no limitations Onset/Duration Of Symptoms: Hrs Current Symptoms Are (Timing): Still Present Additional History Per: Patient Past Medical History Reviewed: Historical Data, Nursing Documentation, Vital Signs Vital Signs: Last Vital Signs Temp 97.5 F L 04/24/17 16:36 Pulse 102 H 04/24/17 16:36 Resp 18 04/24/17 16:36 BP 121/74 04/24/17 16:36 Pulse Ox 96 04/24/17 16:36 - Medical History PMH: Atrial Fibrillation, Cardia Arrhythmia (unknown tachycardia), HTN, Pneumonia Denies: Chronic Kidney Disease Surgical History: No Surg Hx Family History: States: No Known Family Hx - Social History Hx Alcohol Use: No Hx Substance Use: No - Immunization History Hx Tetanus Toxoid Vaccination: No Hx Influenza Vaccination: No Hx Pneumococcal Vaccination: No Review Of Systems Except As Marked, All Systems Reviewed And Found Negative. Constitutional: Negative for: Fever, Chills Cardiovascular: Negative for: Chest Pain Respiratory: Positive for: Shortness of Breath. Negative for: Cough Gastrointestinal: Negative for: Nausea, Vomiting Musculoskeletal: Positive for: Back Pain (upper ) Skin: Negative for: Bruising Physical Exam - Physical Exam Appears: Non-toxic, No Acute Distress Skin: Warm, Dry Head: Atraumatic Eye(s): bilateral: PERRL Oral Mucosa: Moist Neck: Supple Chest: Symmetrical Cardiovascular: Rhythm Irregular Respiratory: Normal Breath Sounds, No Rales, No Rhonchi Gastrointestinal/Abdominal: Soft, No Tenderness, No Guarding, No Rebound Extremity: Capillary Refill (2<sec. ) Neurological/Psych: Oriented x3, Normal Speech, Normal Cognition ED Course And Treatment - Laboratory Results Result Diagrams: 04/24/17 13:30 04/24/17 14:24 ECG Rhythm: Atrial Fibrillation (rapid ventricular response and heart rate 113 bpm ) O2 Sat by Pulse Oximetry: 97 (RA) Progress Note: Plan- Blood work and admission Medical Decision Making Medical Decision Making: HISTORY: SOB, upper back pain COMPARISON: Chest x-ray performed 10/27/16 TECHNIQUE: Chest, one view. FINDINGS: Examination limited by habitus. LUNGS: Mild pulmonary venous congestion. Right hilar prominence. Please note that chest x-ray has limited sensitivity for the detection of pulmonary masses. PLEURA: No significant pleural effusion identified. No definite pneumothorax . CARDIOVASCULAR: Heart size appears top normal. Atherosclerotic calcifications of the aorta. OSSEOUS STRUCTURES: Degenerative changes. VISUALIZED UPPER ABDOMEN: Unremarkable. OTHER FINDINGS: None. IMPRESSION: Mild pulmonary venous congestion. Right hilar prominence. 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 - Scribe Statement The provider has reviewed the documentation as recorded by the Scribe Madeleine Mcnamara
--- NOTE | 2017-04-24 16:28 | CT ---
PROCEDURE: CT HEAD WITHOUT CONTRAST. HISTORY: headache COMPARISON: None available. TECHNIQUE: Axial computed tomography images were obtained through the head/brain without intravenous contrast. Radiation dose: Total exam DLP = 846.50 mGy-cm. This CT exam was performed using one or more of the following dose reduction techniques: Automated exposure control, adjustment of the mA and/or kV according to patient size, and/or use of iterative reconstruction technique. FINDINGS: HEMORRHAGE: No intracranial hemorrhage. BRAIN: Diffuse atrophy with prominence of the ventricles and sulci noted. No mass effect or edema. Scattered periventricular and subcortical white matter hypodensities, which are nonspecific, but often seen with chronic microvascular ischemic disease. Please note that MRI with diffusion imaging is more sensitive in the detection of acute ischemic event. VENTRICLES: No hydrocephalus. CALVARIUM: Unremarkable. PARANASAL SINUSES: Unremarkable as visualized. No significant inflammatory changes. MASTOID AIR CELLS: Unremarkable as visualized. No inflammatory changes. OTHER FINDINGS: None. IMPRESSION: Generalized atrophy. Nonspecific white matter changes.
--- NOTE | 2017-04-24 17:14 | RAD ---
PROCEDURE: Radiographs of the Right Shoulder HISTORY: pain COMPARISON: No prior. FINDINGS: BONES: . No fracture. JOINTS: . Glenohumeral and acromioclavicular mild osteoarthritis. Cervical apophyseal joint hypertrophic arthrosis SOFT TISSUES: Normal. OTHER FINDINGS: None. IMPRESSION: No fracture. Right shoulder arthrosis. Cervical arthrosis
--- NOTE | 2017-04-24 18:34 | C.PDOC ---
History Of Present Illness 76 y/o female hx cardiac A-Fib presents to the ED c/o upper back pain and SOB. The patient denies cough, fever, headaches, and nausea. Chief Complaint (Nursing): Back Pain History Per: Patient History/Exam Limitations: no limitations Onset/Duration Of Symptoms: Hrs Current Symptoms Are (Timing): Still Present Previous Symptoms: Back Pain Associated Symptoms: denies: New Weakness, New Numbness Additional History Per: Patient Past Medical History Reviewed: Historical Data, Nursing Documentation, Vital Signs Vital Signs: Last Vital Signs Temp 97.5 F L 04/24/17 16:36 Pulse 118 H 04/24/17 18:38 Resp 20 04/24/17 18:38 BP 125/74 04/24/17 18:38 Pulse Ox 96 04/24/17 18:45 - Medical History PMH: Atrial Fibrillation, Cardia Arrhythmia (unknown tachycardia), HTN, Pneumonia Denies: Chronic Kidney Disease Surgical History: No Surg Hx Family History: States: No Known Family Hx - Social History Hx Alcohol Use: No Hx Substance Use: No - Immunization History Hx Tetanus Toxoid Vaccination: No Hx Influenza Vaccination: No Hx Pneumococcal Vaccination: No Review Of Systems Except As Marked, All Systems Reviewed And Found Negative. Constitutional: Negative for: Fever, Chills Cardiovascular: Negative for: Chest Pain Respiratory: Positive for: Shortness of Breath. Negative for: Cough, SOB with Excertion, Wheezing Gastrointestinal: Negative for: Nausea, Vomiting, Abdominal Pain, Diarrhea Musculoskeletal: Positive for: Back Pain (upper ). Negative for: Shoulder Pain Skin: Negative for: Rash Physical Exam - Physical Exam Appears: Non-toxic, No Acute Distress Skin: Warm, Dry Head: Atraumatic, Normacephalic Eye(s): bilateral: Normal Inspection Oral Mucosa: Moist Neck: Supple Chest: Symmetrical Cardiovascular: Rhythm Irregular Respiratory: Normal Breath Sounds, No Rales, No Rhonchi, No Wheezing Gastrointestinal/Abdominal: Soft, No Tenderness, No Guarding, No Rebound Back: Normal Inspection, No Vertebral Tenderness Extremity: Tenderness (right shoulder, decreased ROM secondary to pain), Capillary Refill (2<sec.), No Swelling Neurological/Psych: Oriented x3, Normal Speech, Normal Cognition Gait: Steady ED Course And Treatment - Laboratory Results Result Diagrams: 04/24/17 13:30 04/24/17 14:24 Interpretation Of ECG: Rapid Ventricular response. Heart rate 113 bpm O2 Sat by Pulse Oximetry: 96 (RA) Progress Note: Plan: blood work, CT head, CXR, right shoulder xray. Patient found to have rapid afib. Cardizem IV given. CT head, CXR and right shoulder xray were negative. Case was d/w Hospitalist who accepted patient tele for observation. Medical Decision Making Medical Decision Making: PROCEDURE: Radiographs of the Right Shoulder HISTORY: pain COMPARISON: No prior. FINDINGS: BONES: . No fracture. JOINTS: . Glenohumeral and acromioclavicular mild osteoarthritis. Cervical apophyseal joint hypertrophic arthrosis SOFT TISSUES: Normal. OTHER FINDINGS: None. IMPRESSION: No fracture. Right shoulder arthrosis. Cervical arthrosis PROCEDURE: CT HEAD WITHOUT CONTRAST. HISTORY: headache COMPARISON: None available. TECHNIQUE: Axial computed tomography images were obtained through the head/brain without intravenous contrast. Radiation dose: Total exam DLP = 846.50 mGy-cm. This CT exam was performed using one or more of the following dose reduction techniques: Automated exposure control, adjustment of the mA and/or kV according to patient size, and/or use of iterative reconstruction technique. FINDINGS: HEMORRHAGE: No intracranial hemorrhage. BRAIN: Diffuse atrophy with prominence of the ventricles and sulci noted. No mass effect or edema. Scattered periventricular and subcortical white matter hypodensities, which are nonspecific, but often seen with chronic microvascular ischemic disease. Please note that MRI with diffusion imaging is more sensitive in the detection of acute ischemic event. VENTRICLES: No hydrocephalus. CALVARIUM: Unremarkable. PARANASAL SINUSES: Unremarkable as visualized. No significant inflammatory changes. MASTOID AIR CELLS: Unremarkable as visualized. No inflammatory changes. OTHER FINDINGS: None. IMPRESSION: Generalized atrophy. Nonspecific white matter changes. HISTORY: SOB, upper back pain COMPARISON: Chest x-ray performed 10/27/16 TECHNIQUE: Chest, one view. FINDINGS: Examination limited by habitus. LUNGS: Mild pulmonary venous congestion. Right hilar prominence. Please note that chest x-ray has limited sensitivity for the detection of pulmonary masses. PLEURA: No significant pleural effusion identified. No definite pneumothorax . CARDIOVASCULAR: Heart size appears top normal. Atherosclerotic calcifications of the aorta. OSSEOUS STRUCTURES: Degenerative changes. VISUALIZED UPPER ABDOMEN: Unremarkable. OTHER FINDINGS: None. IMPRESSION: Mild pulmonary venous congestion. Right hilar prominence. Disposition - Disposition Disposition: HOSPITALIZED Disposition Time: 17:40 Condition: FAIR - Clinical Impression Clinical Impression: Upper back pain, Dyspnea, A-fib - PA / TRANSIT MANAGER / Resident Statement MD/DO has examined the patient and agrees with the treatment plan. - Scribe Statement The provider has reviewed the documentation as recorded by the Emilianoibe Madeleine Mcnamara Decision To Admit - Pt Status Changed To: Hospital Disposition Of: Observation - . Bed Request Type: Telemetry Admitting Physician: Van Iglesias Patient Diagnosis: Upper back pain, Dyspnea, A-fib
--- NOTE | 2017-04-24 21:17 | CP.PCM.HP ---
<Murali Dewitt - Last Filed: 04/25/17 03:58> History of Present Illness - History of Present Illness History of Present Illness: Medicine H/P CC: Back pain, R. arm weakness HPI: Patient is a 76 female w/ PMH of Afib/HTN. She [place] when she had pneumonia. At that time she was put on metoprolol and xarelto. [place] where she goes see a doctor in a clinic where they monitor her condition. She does not know the name of the doctor nor does she know if she sees a camelid fiber sorter. On presentation to the ED her HR was elevated @ 118. Cardizem was given and her HR was brought down to 102. She has been complaining of palpations as well. Her new symptoms of weaknes and pain began earlier today. Nothing made it better or worse, but it has resolved upon my interview. She describes the pain as weakness and "pain" traveling down the R. arm. She denies chest pain or SOB. She sleeps with one pillow at night. She ambulates independently. Denies fever or chills. Denies blurry vision, syncope, changes in speech or mentation. Denies any cough. ROS: as above PMD: A clinic, no name of doctor PMH: Afib/HTN PSH: None FH: sister had cancer SH: denies smoking, drinking or drugs, Lives with her daughter All: None Present on Admission - Present on Admission Any Indicators Present on Admission: No Review of Systems - Review of Systems Review of Systems: Per hpi Past Patient History - Infectious Disease Hx of Infectious Diseases: None - Past Medical History & Family History Past Medical History?: Yes - Past Social History Smoking Status: Never Smoked - CARDIAC Hx Atrial Fibrillation: Yes Hx Cardia Arrhythmia: Yes (unknown tachycardia) Hx Hypertension: Yes - PULMONARY Hx Pneumonia: Yes - NEUROLOGICAL Hx Neurological Disorder: No - HEENT Hx HEENT Problems: No - RENAL Hx Chronic Kidney Disease: No - ENDOCRINE/METABOLIC Hx Endocrine Disorders: No - HEMATOLOGICAL/ONCOLOGICAL Hx Blood Disorders: No - INTEGUMENTARY Hx Dermatological Problems: No - MUSCULOSKELETAL/RHEUMATOLOGICAL Hx Musculoskeletal Disorders: No - GASTROINTESTINAL Hx Gastrointestinal Disorders: No - GENITOURINARY/GYNECOLOGICAL Hx Genitourinary Disorders: No - PSYCHIATRIC Hx Substance Use: No - SURGICAL HISTORY Hx Surgeries: No - ANESTHESIA Hx Anesthesia: No Meds Allergies/Adverse Reactions: Allergies Allergy/AdvReac Type Severity Reaction Status Date / Time No Known Allergies Allergy Verified 04/24/17 12:31 Physical Exam - Constitutional Appears: Non-toxic, No Acute Distress - Head Exam Head Exam: ATRAUMATIC, NORMAL INSPECTION, NORMOCEPHALIC - Eye Exam Eye Exam: EOMI. absent: Conjunctival injection, Nystagmus, Periorbital swelling , Scleral icterus Pupil Exam: NORMAL ACCOMODATION, PERRL. absent: Fixed, Irregular, Miosis, Mydriatic, Unequal - ENT Exam ENT Exam: Mucous Membranes Moist - Respiratory Exam Respiratory Exam: Clear to Auscultation Bilateral, NORMAL BREATHING PATTERN. absent: Accessory Muscle Use, Chest Wall Tenderness, Rales, Rhonchi, Wheezes, Respiratory Distress - Cardiovascular Exam Cardiovascular Exam: Tachycardia, Irregular Rhythm, JVD, +S1, +S2 - GI/Abdominal Exam GI & Abdominal Exam: Normal Bowel Sounds, Soft. absent: Distended, Tenderness - Extremities Exam Extremities exam: Negative for: joint swelling, tenderness - Neurological Exam Neurological exam: Alert, CN II-XII Intact, Oriented x3 - Expanded Neurological Exam Expanded Patient oriented to: person, place, time Speech: Fluid Speech Cranial nerves: EOM's Intact: Normal, Facial Palsey w/Forehead Movement: Normal , Facial Palsey w/o Forehead Movement: Normal, Facial Sensation: Normal Sensory exam: Lower Extremity Light Touch: Normal, Upper Extremity Light Touch: Normal Neuro motor strength exam: Left Upper Extremity: 5, Right Upper Extremity: 5, Left Lower Extremity: 5, Right Lower Extremity: 5 Coma Scale Eye Opening: SPONTANEOUS Coma Scale Motor Response: OBEYS COMMANDS Coma Scale Verbal: Oriented Coma Scale Total: 15 - Psychiatric Exam Psychiatric exam: Normal Affect, Normal Mood - Skin Skin Exam: Dry, Intact, Normal Color, Warm Results - Vital Signs Recent Vital Signs: Last Vital Signs Temp 98.0 F 04/24/17 19:55 Pulse 127 H 04/24/17 20:42 Resp 18 04/24/17 19:55 BP 113/85 04/24/17 19:55 Pulse Ox 94 L 04/24/17 20:12 - Labs Result Diagrams: 04/24/17 13:30 04/24/17 14:24 Labs: Laboratory Results - last 24 hr 04/24/17 04/24/17 04/24/17 13:30 13:30 14:24 WBC 5.3 RBC 4.49 Hgb 14.2 Hct 42.3 MCV 94.2 D MCH 31.7 H MCHC 33.7 RDW 15.2 H Plt Count 240 MPV 9.5 Neut % (Auto) 67.2 Lymph % (Auto) 18.4 L [place] % (Auto) 10.7 H Eos % (Auto) 3.2 Baso % (Auto) 0.5 Neut # 3.6 Lymph # 1.0 [place] # 0.6 Eos # 0.2 Baso # 0.0 PT 18.5 H INR 1.6 APTT 40 H Sodium 140 Potassium 3.9 Chloride 104 Carbon Dioxide 28 Anion Gap 11 BUN 21 H Creatinine 0.9 Est GFR ( Amer) > 60 Est GFR (Non-Af Amer) > 60 Random Glucose 121 H Calcium 8.5 L Total Bilirubin 0.3 AST 26 ALT 40 Alkaline Phosphatase 45 Total Creatine Kinase 32 CK-MB (Mass) < 0.22 Troponin I < 0.0120 Total Protein 6.7 Albumin 3.7 Globulin 3.0 Albumin/Globulin Ratio 1.2 Assessment & Plan (1) A-fib Assessment and Plan: Given cardizem 5 IV once and 30 PO Once in ED Patient takes xarelto 20 PO QD/metoprolol 50 PO BID/cardizem CD 120 at home, will continue tele will check TSH given history of Hypothyroid tx with Synthroid 25 PO QD, Maybe overtx causing rapid afib? Status: Chronic Priority: High (2) Hypothyroidism Assessment and Plan: continue home synthorid 25 PO QD Check TSH Status: Chronic Priority: High <Rodrigo Verdin P - Last Filed: 04/25/17 06:36> Results - Vital Signs Recent Vital Signs: Last Vital Signs Temp 97.9 F 04/25/17 04:05 Pulse 71 04/25/17 04:05 Resp 20 04/25/17 04:05 BP 98/59 L 04/25/17 04:05 Pulse Ox 96 04/25/17 04:05 - Labs Result Diagrams: 04/24/17 13:30 04/24/17 14:24 Labs: Laboratory Results - last 24 hr 04/24/17 04/24/17 04/24/17 13:30 13:30 14:24 WBC 5.3 RBC 4.49 Hgb 14.2 Hct 42.3 MCV 94.2 D MCH 31.7 H MCHC 33.7 RDW 15.2 H Plt Count 240 MPV 9.5 Neut % (Auto) 67.2 Lymph % (Auto) 18.4 L [place] % (Auto) 10.7 H Eos % (Auto) 3.2 Baso % (Auto) 0.5 Neut # 3.6 Lymph # 1.0 [place] # 0.6 Eos # 0.2 Baso # 0.0 PT 18.5 H INR 1.6 APTT 40 H Sodium 140 Potassium 3.9 Chloride 104 Carbon Dioxide 28 Anion Gap 11 BUN 21 H Creatinine 0.9 Est GFR ( Amer) > 60 Est GFR (Non-Af Amer) > 60 Random Glucose 121 H Calcium 8.5 L Total Bilirubin 0.3 AST 26 ALT 40 Alkaline Phosphatase 45 Total Creatine Kinase 32 CK-MB (Mass) < 0.22 Troponin I < 0.0120 Total Protein 6.7 Albumin 3.7 Globulin 3.0 Albumin/Globulin Ratio 1.2 Attending/Attestation - Attestation I have personally seen and examined this patient.: Yes I have fully participated in the care of the patient.: Yes I have reviewed all pertinent clinical information: Yes Notes (Text): Assessment * Patient came for vague symptoms of headache, back pain, nausea was found to have hr in one teens in ER has h/o fib hence being observed, symptoms resolved on floor, no weakness or neurological symptoms, hr in 120's mean variable, patient is not symptomatic. Plan * Observation in tele * Continue home med, including xeralto * See orders for detail.
[2017-04-25] MEDS ORDERED: Levothyroxine 25 MCG TAB PO SCH (06:30)
[2017-04-25 07:14] LABS: BASO % 0.3 % (0.0-2.0); EOS # 0.3 K/uL (0.0-0.7); EOS % 4.1 % (0.0-4.0); HEMATOCRIT 42.3 % (34.0-47.0); LYMPH # 2.2 K/uL (1.0-4.3); LYMPH % 29.5 % (20.0-40.0); MEAN CELL VOLUME 93.3 fL (81.0-99.0); MEAN CORPUSCULAR HEMOGLOBIN 31.7 pg (27.0-31.0); MEAN PLATELET VOLUME 9.2 fL (7.2-11.7); MONO # 0.8 K/uL (0.0-0.8); MONO % 10.8 % (0.0-10.0); NRBC % 0.1 % (0.0-2.0); RED CELL DISTRIBUTION WIDTH 14.7 % (11.5-14.5); WHITE BLOOD COUNT 7.6 K/uL (4.8-10.8)
[2017-04-25 08:08] LABS: ALB/GLOB RATIO 1.2 (1.0-2.1); ALKALINE PHOSPHATASE 63 U/L (38-126); ALT/SGPT 41 U/L (9-52); AST/SGOT 34 U/L (14-36); BILIRUBIN,TOTAL 0.5 mg/dL (0.2-1.3); BLOOD UREA NITROGEN 20 mg/dL (7-17); CALCIUM 8.2 mg/dl (8.6-10.4); CARBON DIOXIDE 26 mmol/L (22-30); CHLORIDE 103 mmol/L (98-107); GFR AFRICAN-AMERICAN > 60; GLUCOSE,RANDOM 112 mg/dL (65-105); POTASSIUM 4.1 mmol/L (3.6-5.2); SODIUM 138 mmol/L (132-148); TOTAL PROTEIN 7.3 g/dL (6.3-8.3)
[2017-04-25 08:23] LABS: THYROID STIMULATING HORMONE 2.38 mIU/L (0.46-4.68)
[2017-04-25 08:40] VITALS: BP 106/68; PULSE 79; RESP 20; TEMP 97.5; O2SAT 66
[2017-04-25] MEDS ORDERED: Influenza Vaccine 60 mcg/0.5 mL SYR (4YR UP) IM ONE (09:53)
[2017-04-25] MEDS ORDERED: diltiaZEM 120 mg/24 Hours CD Cap PO SCH (10:00)
--- NOTE | 2017-04-25 10:31 | CP.PCM.DIS ---
<Curtis Johnson - Last Filed: 04/25/17 13:40> Provider - Provider Date of Admission: 04/24/17 17:42 Attending physician: Rodrigo Verdin MD Time Spent in preparation of Discharge (in minutes): 32 Diagnosis - Discharge Diagnosis (1) Paroxysmal atrial fibrillation with rapid ventricular response Status: Acute (2) Hypothyroidism Status: Chronic Priority: High Hospital Course - Lab Results Lab Results: Most Recent Lab Values WBC 7.6 K/uL (4.8-10.8) 04/25/17 07:01 RBC 4.53 Mil/uL (3.80-5.20) 04/25/17 07:01 Hgb 14.4 g/dL (11.0-16.0) 04/25/17 07:01 Hct 42.3 % (34.0-47.0) 04/25/17 07:01 MCV 93.3 fL (81.0-99.0) 04/25/17 07:01 MCH 31.7 pg (27.0-31.0) H 04/25/17 07:01 MCHC 34.0 g/dL (33.0-37.0) 04/25/17 07:01 RDW 14.7 % (11.5-14.5) H 04/25/17 07:01 Plt Count 280 K/uL (130-400) 04/25/17 07:01 MPV 9.2 fL (7.2-11.7) 04/25/17 07:01 Neut % (Auto) 55.3 % (50.0-75.0) 04/25/17 07:01 Lymph % (Auto) 29.5 % (20.0-40.0) 04/25/17 07:01 [place] % (Auto) 10.8 % (0.0-10.0) H 04/25/17 07:01 Eos % (Auto) 4.1 % (0.0-4.0) H 04/25/17 07:01 Baso % (Auto) 0.3 % (0.0-2.0) 04/25/17 07:01 Neut # 4.2 K/uL (1.8-7.0) 04/25/17 07:01 Lymph # 2.2 K/uL (1.0-4.3) 04/25/17 07:01 [place] # 0.8 K/uL (0.0-0.8) 04/25/17 07:01 Eos # 0.3 K/uL (0.0-0.7) 04/25/17 07:01 Baso # 0.0 K/uL (0.0-0.2) 04/25/17 07:01 PT 18.5 SECONDS (9.7-12.2) H 04/24/17 13:30 INR 1.6 04/24/17 13:30 APTT 40 SECONDS (21-34) H 04/24/17 13:30 Sodium 138 mmol/L (132-148) 04/25/17 07:01 Potassium 4.1 mmol/L (3.6-5.2) 04/25/17 07:01 Chloride 103 mmol/L (98-107) 04/25/17 07:01 Carbon Dioxide 26 mmol/L (22-30) 04/25/17 07:01 Anion Gap 14 (10-20) 04/25/17 07:01 BUN 20 mg/dL (7-17) H 04/25/17 07:01 Creatinine 0.8 mg/dL (0.7-1.2) 04/25/17 07:01 Est GFR ( Amer) > 60 04/25/17 07:01 Est GFR (Non-Af Amer) > 60 04/25/17 07:01 Random Glucose 112 mg/dL (65-105) H 04/25/17 07:01 Calcium 8.2 mg/dl (8.6-10.4) L 04/25/17 07:01 Total Bilirubin 0.5 mg/dL (0.2-1.3) 04/25/17 07:01 AST 34 U/L (14-36) 04/25/17 07:01 ALT 41 U/L (9-52) 04/25/17 07:01 Alkaline Phosphatase 63 U/L (38-126) 04/25/17 07:01 Total Creatine Kinase 32 U/L (30-135) 04/24/17 14:24 CK-MB (Mass) < 0.22 ng/mL (0.0-3.38) 04/24/17 14:24 Troponin I < 0.0120 ng/mL (0.00-0.120) 04/24/17 14:24 Total Protein 7.3 g/dL (6.3-8.3) 04/25/17 07:01 Albumin 4.0 g/dL (3.5-5.0) 04/25/17 07:01 Globulin 3.3 gm/dL (2.2-3.9) 04/25/17 07:01 Albumin/Globulin Ratio 1.2 (1.0-2.1) 04/25/17 07:01 TSH 3rd Generation 2.38 mIU/L (0.46-4.68) 04/25/17 07:01 - Hospital Course Hospital Course: Initial Note: "Patient is a 76 female w/ PMH of Afib/HTN. She [place] when she had pneumonia. At that time she was put on metoprolol and xarelto. [place] see a doctor in a clinic where they monitor her condition. She does not know the name of the doctor nor does she know if she sees a campus executive director. On presentation to the ED her HR was elevated @ 118. Cardizem was given and her HR was brought down to 102. She has been complaining of palpations as well. Her new symptoms of weaknes and pain began earlier today. Nothing made it better or worse, but it has resolved upon my interview. She describes the pain as weakness and "pain" traveling down the R. arm. She denies chest pain or SOB. She sleeps with one pillow at night. She ambulates independently. Denies fever or chills. Denies blurry vision, syncope, changes in speech or mentation. Denies any cough." Hospital Course: Patient admitted for observation for atrial fibrillation with rapid ventricular response. She was given IV Cardizem in the ED which improved her heart rate. Patient had been complaining of right shoulder pain. This could have likely contributed to her elevated pulse. There was concern of thyroid issues causing the elevated heart rate but TSH was unremarkable. Per patient's daughter, she is on Caridizem and Metoprolol once daily at home. Given that the patient has a relatively low blood pressure, the decision was made not to increase her dosing of the aforementioned medications. Instead, the patient was discharged on 0.25 mg of digoxin to better control her rate and told to continue her home medication regimen until she is able to follow up with her primary physician at the [facility]. This is a summary of the hospital course. For more information, please refer to the medical records. Discharge Exam - Head Exam Head Exam: ATRAUMATIC, NORMAL INSPECTION, NORMOCEPHALIC - Eye Exam Eye Exam: EOMI, Normal appearance - ENT Exam ENT Exam: Mucous Membranes Moist - Respiratory Exam Respiratory Exam: Clear to PA & Lateral. absent: Rales, Rhonchi, Wheezes - Cardiovascular Exam Cardiovascular Exam: Irregular Rhythm, +S1, +S2. absent: Tachycardia - GI/Abdominal Exam GI & Abdominal Exam: Normal Bowel Sounds, Soft. absent: Tenderness - Extremities Exam Extremities exam: pedal pulses present - Neurological Exam Neurological exam: Alert, CN II-XII Intact, Oriented x3 - Psychiatric Exam Psychiatric exam: Normal Affect, Normal Mood - Skin Skin Exam: Dry, Intact, Normal Color, Warm Discharge Plan - Discharge Medications Prescriptions: Digoxin [Lanoxin] 0.25 mg PO DAILY #30 tablet - Follow Up Plan Condition: STABLE Disposition: HOME/ ROUTINE Instructions: Digoxin (By mouth), Atrial Fibrillation (DC), Dyspnea (GEN), Back Pain (GEN) Additional Instructions: Please continue the Metoprolol, Cardizem, Xarelto, Levothyroxine once a day as prescribed by your doctor at the [facility]. Please also start Digoxin 0.25 mg once a day for the heart. Please follow up at the [facility]. If there are any new or worsening symptoms, please return to the nearest emergency room. Contine con Metoprolol, Cardizem, Xarelto, Levothyroxine traci vez al da segn lo prescrito por estrada mdico en la [facility]. Comience tambin con Digoxin 0.25 mg traci vez al da para el corazn. Por favor, siga en la [facility] [place]. Si hay sntomas nuevos o que empeoran, regrese a la shukri de emergencias ms yanely. Referrals: [facility] [Outside] <Enrique Meneses - Last Filed: 04/25/17 14:12> Provider - Provider Date of Admission: 04/24/17 17:42 Attending physician: Rodrigo Verdin MD Hospital Course - Lab Results Lab Results: Most Recent Lab Values WBC 7.6 K/uL (4.8-10.8) 04/25/17 07:01 RBC 4.53 Mil/uL (3.80-5.20) 04/25/17 07:01 Hgb 14.4 g/dL (11.0-16.0) 04/25/17 07:01 Hct 42.3 % (34.0-47.0) 04/25/17 07:01 MCV 93.3 fL (81.0-99.0) 04/25/17 07:01 MCH 31.7 pg (27.0-31.0) H 04/25/17 07:01 MCHC 34.0 g/dL (33.0-37.0) 04/25/17 07:01 RDW 14.7 % (11.5-14.5) H 04/25/17 07:01 Plt Count 280 K/uL (130-400) 04/25/17 07:01 MPV 9.2 fL (7.2-11.7) 04/25/17 07:01 Neut % (Auto) 55.3 % (50.0-75.0) 04/25/17 07:01 Lymph % (Auto) 29.5 % (20.0-40.0) 04/25/17 07:01 [place] % (Auto) 10.8 % (0.0-10.0) H 04/25/17 07:01 Eos % (Auto) 4.1 % (0.0-4.0) H 04/25/17 07:01 Baso % (Auto) 0.3 % (0.0-2.0) 04/25/17 07:01 Neut # 4.2 K/uL (1.8-7.0) 04/25/17 07:01 Lymph # 2.2 K/uL (1.0-4.3) 04/25/17 07:01 [place] # 0.8 K/uL (0.0-0.8) 04/25/17 07:01 Eos # 0.3 K/uL (0.0-0.7) 04/25/17 07:01 Baso # 0.0 K/uL (0.0-0.2) 04/25/17 07:01 PT 18.5 SECONDS (9.7-12.2) H 04/24/17 13:30 INR 1.6 04/24/17 13:30 APTT 40 SECONDS (21-34) H 04/24/17 13:30 Sodium 138 mmol/L (132-148) 04/25/17 07:01 Potassium 4.1 mmol/L (3.6-5.2) 04/25/17 07:01 Chloride 103 mmol/L (98-107) 04/25/17 07:01 Carbon Dioxide 26 mmol/L (22-30) 04/25/17 07:01 Anion Gap 14 (10-20) 04/25/17 07:01 BUN 20 mg/dL (7-17) H 04/25/17 07:01 Creatinine 0.8 mg/dL (0.7-1.2) 04/25/17 07:01 Est GFR ( Amer) > 60 04/25/17 07:01 Est GFR (Non-Af Amer) > 60 04/25/17 07:01 Random Glucose 112 mg/dL (65-105) H 04/25/17 07:01 Calcium 8.2 mg/dl (8.6-10.4) L 04/25/17 07:01 Total Bilirubin 0.5 mg/dL (0.2-1.3) 04/25/17 07:01 AST 34 U/L (14-36) 04/25/17 07:01 ALT 41 U/L (9-52) 04/25/17 07:01 Alkaline Phosphatase 63 U/L (38-126) 04/25/17 07:01 Total Creatine Kinase 32 U/L (30-135) 04/24/17 14:24 CK-MB (Mass) < 0.22 ng/mL (0.0-3.38) 04/24/17 14:24 Troponin I < 0.0120 ng/mL (0.00-0.120) 04/24/17 14:24 Total Protein 7.3 g/dL (6.3-8.3) 04/25/17 07:01 Albumin 4.0 g/dL (3.5-5.0) 04/25/17 07:01 Globulin 3.3 gm/dL (2.2-3.9) 04/25/17 07:01 Albumin/Globulin Ratio 1.2 (1.0-2.1) 04/25/17 07:01 TSH 3rd Generation 2.38 mIU/L (0.46-4.68) 04/25/17 07:01 Attending/Attestation - Attestation I have personally seen and examined this patient.: Yes I have fully participated in the care of the patient.: Yes I have reviewed all pertinent clinical information, including history, physical exam and plan: Yes Notes (Text): 04/25/17 14:03 Medical attending: Patient was seen and examined by me, agrees the above note by the medical staff coordinator. Family members were present in the room as well, the patient was okay with this family members participated during our discussion. As mentioned above in the resident note the patient has a history of atrial fibrillation that was found in her [place] [facility] [place]. She has been taking Xarelto for anticoagulation as well as oral Cardizem and oral metoprolol succinate for rate control. She's been doing pretty well according to the family however recently she is noticing palpitations. The patient To the emergency room last night she was reporting significant amount of right-sided shoulder pain. However by the time we saw her in the morning the pain had resolved. Review for telemetry shows that her heart rate varies anywhere between 110s to 120 range overnight The patient is a 69 has relatively low blood pressure. She is able to walk around with us in the hallway and then back to her bed. The patient will be discharged, with the family members we explained to them the need to continue metoprolol succinate as well as the Cardizem and Xarelto. The new medication be digoxin orally for further rate control Thank you very much, Enrique Meneses
== END 2017-04-25 13:20 | disposition home or self-care (01) ==
LOC: C.ER 12:06 → C.9E 17:42 → C.6T 18:53
PROVIDERS: ADMIT Internal Medicine; ATTEND Internal Medicine
DX: I48.0 Paroxysmal atrial fibrillation (principal); E03.9 Hypothyroidism, unspecified; I10 Essential (primary) hypertension; M19.011 Primary osteoarthritis, right shoulder
CPT/HCPCS: 36415; 70450; 71010; 73030; 80053; 82550; 82553; 84443; 84484; 85025; 85610; 85730; 90471; 90674; 96374; 99285; G0378

== ENCOUNTER 2017-05-11 19:21 | Emergency (ER) | payer SELFPAY ==
[2017-05-11 19:21] VITALS: PULSE 116; BMI 33.3
--- NOTE | 2017-05-11 19:51 | C.PDOC ---
History Of Present Illness Patient is a 76 y/o female, with a Hx of AFib, PNA, and HTN, who presents to the ED with complaints of SOB, congestion, and cough for the last 5 days. Patient notes back pain and generalized weakness; denies CP, fever, sweating, nausea/vomiting, abdominal pain, or Hx of CHF, COPD, emphysema, DM, or bronchitis. Admits SOB is continuous from congestion. No other physical complaints at this time. Time Seen by Provider: 05/11/17 19:49 Chief Complaint (Nursing): Shortness Of Breath History Per: Patient, Family (relative) History/Exam Limitations: no limitations Onset/Duration Of Symptoms: Days (5 days), Persistent Current Symptoms Are (Timing): Still Present Exacerbating Factor(s): Laying Flat (relieved when sitting up ) Current Respiratory Medications: See Home Med List Associated Symptoms: denies: Fever Recent travel outside of the [place]: No Past Medical History Reviewed: Historical Data, Nursing Documentation, Vital Signs Vital Signs: Last Vital Signs Temp 98.7 F 05/12/17 02:00 Pulse 107 H 05/12/17 02:00 Resp 20 05/12/17 02:00 BP 135/78 05/12/17 02:00 Pulse Ox 95 05/12/17 02:00 - Medical History PMH: Atrial Fibrillation, Cardia Arrhythmia, HTN, Pneumonia Denies: Chronic Kidney Disease Surgical History: No Surg Hx Family History: States: Unknown Family Hx - Social History Hx Alcohol Use: No Hx Substance Use: No - Immunization History Hx Tetanus Toxoid Vaccination: No Hx Influenza Vaccination: Yes Hx Pneumococcal Vaccination: Yes Review Of Systems Constitutional: Positive for: Weakness (generalized). Negative for: Fever, Sweats Cardiovascular: Negative for: Chest Pain Respiratory: Positive for: Cough, Shortness of Breath, Wheezing Gastrointestinal: Negative for: Nausea, Vomiting, Abdominal Pain Musculoskeletal: Positive for: Back Pain Physical Exam - Physical Exam Appears: Well, Non-toxic, No Acute Distress Skin: Normal Color, Warm, Dry Head: Atraumatic, Normacephalic Oral Mucosa: Moist Chest: Symmetrical Cardiovascular: No Rhythm Irregular (irregularly irregular), JVD (at 30 degrees head elevation), Other (accelerated rate) Respiratory: Normal Breath Sounds, No Rales, No Rhonchi, No Wheezing Gastrointestinal/Abdominal: Soft, No Tenderness Extremity: Swelling (trace peripheral edema) ED Course And Treatment - Laboratory Results Result Diagrams: 05/11/17 20:19 05/11/17 20:19 ECG: Interpreted By Me, Viewed By Me ECG Rhythm: Atrial Fibrillation, Nonspecific Changes ECG Interpretation: Abnormal Rate From EC (bpm) O2 Sat by Pulse Oximetry: 97 - Radiology CXR: Interpreted by Me, Viewed By Me CXR Interpretation: Yes: Other (pulmonary vascular congestion consistent with CHF) - CT Scan/US Angio Other Rad Studies (CT/US): Interpreted By Me, Read By Radiologist CT/US Interpretation: EXAM: CT Angiography Chest With Intravenous Contrast. CLINICAL HISTORY: 76 years old, female; Signs and symptoms; Shortness of breath ; Additional info: SOB. TECHNIQUE: Axial computed tomographic angiography images of the chest with intravenous contrast using. pulmonary embolism protocol. All CT scans at this facility use one or more dose reduction. techniques, viz.: automated exposure control; ma/kV adjustment per patient size (including targeted. exams where dose is matched to indication; i.e. head); or iterative reconstruction technique. MIP reconstructed images were created and reviewed. Coronal and sagittal reformatted images were created and reviewed. CONTRAST: 100 mL of [id number] administered intravenously. COMPARISON: No relevant prior studies available. FINDINGS: Pulmonary arteries: No pulmonary embolism visualized. Artifact limits evaluation of segmental and. subsegmental arteries. Aorta: Atherosclerosis. No thoracic aortic aneurysm. Lungs: Atelectasis. No mass. No consolidation. Pleural space: No significant effusion. No pneumothorax. Heart: No cardiomegaly. No significant pericardial effusion. Bones: Degenerative changes. Lymph nodes: Shotty nodes. Small hiatal hernia. IMPRESSION: No definitive acute CT finding to correspond to reported history. Please see details/findings as. above. Thank you for allowing us to participate in the care of your patient. Medical Decision Making Medical Decision Making: clinical impression: * possible heart failure due to ill-controlled AFib plan: * cardizen 20 mg and lasix administered * EKG, CXR, and blood work ordered * patient to be admitted to floor telemetry under Dr. Verdin. * Pt evaluated in the ED by Dr Verdin who feels that pt can be managed from home for her atrial fib and CHF.He discussed the discharge plan with pt and assumes responsibility for her discharge Disposition - Disposition Disposition: HOME/ ROUTINE Disposition Time: 21:26 Condition: FAIR - Clinical Impression Clinical Impression: Paroxysmal atrial fibrillation with rapid ventricular response, Congestive cardiac failure - Scribe Statement The provider has reviewed the documentation as recorded by the Scribe Guerda Schuster All medical record entries made by the Scribe were at my direction and personally dictated by me. I have reviewed the chart and agree that the record accurately reflects my personal performance of the history, physical exam, medical decision making, and the department course for this patient. I have also personally directed, reviewed, and agree with the discharge instructions and disposition.
[2017-05-11 20:31] LABS: BASO # 0.1 K/uL (0.0-0.2); BASO % 1.1 % (0.0-2.0); EOS # 0.3 K/uL (0.0-0.7); EOS % 4.7 % (0.0-4.0); HEMOGLOBIN 13.3 g/dL (11.0-16.0); LYMPH # 1.3 K/uL (1.0-4.3); LYMPH % 21.8 % (20.0-40.0); MEAN CELL VOLUME 93.8 fL (81.0-99.0); MEAN CORPUSCULAR HEMOGLOBIN 31.2 pg (27.0-31.0); MEAN CORPUSCULAR HGB CONC 33.2 g/dL (33.0-37.0); MONO # 0.5 K/uL (0.0-0.8); MONO % 8.8 % (0.0-10.0); NEUT # 3.9 K/uL (1.8-7.0); NEUT % 63.6 % (50.0-75.0); NRBC % 0.1 % (0.0-2.0); RBC 4.25 Mil/uL (3.80-5.20); RED CELL DISTRIBUTION WIDTH 14.9 % (11.5-14.5); WHITE BLOOD COUNT 6.1 K/uL (4.8-10.8)
[2017-05-11 20:47] LABS: ALB/GLOB RATIO 1.2 (1.0-2.1); ALBUMIN 3.9 g/dL (3.5-5.0); ALT/SGPT 38 U/L (9-52); AST/SGOT 23 U/L (14-36); BLOOD UREA NITROGEN 24 mg/dL (7-17); GFR AFRICAN-AMERICAN > 60; GFR NON-AFRICAN AMERICAN > 60
[2017-05-11 20:54] LABS: B-TYPE NATRIURETIC PEPTIDE 2440 pg/mL (0-900)
[2017-05-11 21:12] VITALS: RESP 20
--- NOTE | 2017-05-11 22:07 | CP.PCM.HP ---
<Ifrah Cano - Last Filed: 05/12/17 03:25> History of Present Illness - History of Present Illness History of Present Illness: Medicine Note for Hospital Service CC: SOB, congestion, and cough for the last 5 days. HPI: 76 yo Female with PMHx of Atrial Fibrillation and HTN presents to the ED with SOB, congestion, and cough for the last 5 days. Daughter was at bedside and was providing history and translating for the patient. Patient reports he has felt feverish, productive cough with yellow/ green sputum, with congestion and SOB. She has tried OTC cough syrup with no relief. She admits to associated fatigue. Daughter admits to not giving digoxin for the past 3 days, due to HR being in the low 60s. Denied any sick contacts, received flu vaccine last year. Denied fever, chills, headache, SOB, chest pain, abdominal pain, n/v/ d/c, or urinary symptoms. PMHx: Atrial Fibrillation and HTN PSHx: Denied Meds: As per JUN, reviewed and confirmed All: NKDA SHx: Denied x3 FHx: Sister - cancer PMD: Clinic Present on Admission - Present on Admission Any Indicators Present on Admission: No Past Patient History - Infectious Disease Hx of Infectious Diseases: None - Past Medical History & Family History Past Medical History?: Yes - Past Social History Smoking Status: Never Smoked - CARDIAC Hx Atrial Fibrillation: Yes Hx Cardia Arrhythmia: Yes Hx Hypertension: Yes - PULMONARY Hx Pneumonia: Yes - NEUROLOGICAL Hx Neurological Disorder: No - HEENT Hx HEENT Problems: No - RENAL Hx Chronic Kidney Disease: No - ENDOCRINE/METABOLIC Hx Endocrine Disorders: No - HEMATOLOGICAL/ONCOLOGICAL Hx Blood Disorders: No - INTEGUMENTARY Hx Dermatological Problems: No - MUSCULOSKELETAL/RHEUMATOLOGICAL Hx Musculoskeletal Disorders: No - GASTROINTESTINAL Hx Gastrointestinal Disorders: No - GENITOURINARY/GYNECOLOGICAL Hx Genitourinary Disorders: No - PSYCHIATRIC Hx Substance Use: No - SURGICAL HISTORY Hx Surgeries: No - ANESTHESIA Hx Anesthesia: No Meds Home Medications: Home Medication List Medication Instructions Recorded Confirmed Type Digoxin 0.125 mg PO DAILY #30 tab 05/11/17 Rx Doxycycline Monohydrate 100 mg PO Q12 #10 capsule 05/11/17 Rx Metoprolol Tartrate [Lopressor] 50 mg PO BID #60 tab 05/11/17 Rx Allergies/Adverse Reactions: Allergies Allergy/AdvReac Type Severity Reaction Status Date / Time No Known Allergies Allergy Verified 05/11/17 19:36 Physical Exam - Constitutional Appears: No Acute Distress - Head Exam Head Exam: NORMAL INSPECTION, NORMOCEPHALIC - Eye Exam Eye Exam: EOMI, Normal appearance, PERRL Pupil Exam: NORMAL ACCOMODATION - ENT Exam ENT Exam: Mucous Membranes Moist, Normal Exam - Respiratory Exam Respiratory Exam: absent: Decreased Breath Sounds, Rales, Rhonchi, Wheezes - Cardiovascular Exam Cardiovascular Exam: REGULAR RHYTHM - GI/Abdominal Exam GI & Abdominal Exam: Normal Bowel Sounds, Soft. absent: Distended, Tenderness - Extremities Exam Extremities exam: Positive for: normal inspection, pedal pulses present. Negative for: joint swelling, pedal edema, tenderness - Back Exam Back exam: NORMAL INSPECTION - Neurological Exam Neurological exam: Alert, CN II-XII Intact, Oriented x3 - Psychiatric Exam Psychiatric exam: Normal Affect, Normal Mood - Skin Skin Exam: Dry, Intact, Normal Color, Warm Results - Vital Signs Recent Vital Signs: Last Vital Signs Temp 98.6 F 05/11/17 19:31 Pulse 86 05/11/17 22:04 Resp 20 05/11/17 22:04 BP 120/73 05/11/17 22:04 Pulse Ox 95 05/11/17 22:04 - Labs Result Diagrams: 05/11/17 20:19 05/11/17 20:19 Labs: Laboratory Results - last 24 hr 05/11/17 05/11/17 20:19 20:19 WBC 6.1 RBC 4.25 Hgb 13.3 Hct 39.9 MCV 93.8 MCH 31.2 H MCHC 33.2 RDW 14.9 H Plt Count 236 MPV 9.0 Neut % (Auto) 63.6 Lymph % (Auto) 21.8 [place] % (Auto) 8.8 Eos % (Auto) 4.7 H Baso % (Auto) 1.1 Neut # 3.9 Lymph # 1.3 [place] # 0.5 Eos # 0.3 Baso # 0.1 Sodium 141 Potassium 4.0 Chloride 104 Carbon Dioxide 31 H Anion Gap 11 BUN 24 H Creatinine 0.9 Est GFR ( Amer) > 60 Est GFR (Non-Af Amer) > 60 Random Glucose 125 H Calcium 9.0 Total Bilirubin 0.3 AST 23 ALT 38 Alkaline Phosphatase 63 Troponin I < 0.0120 NT-Pro-B Natriuret Pep 2440 H Total Protein 7.1 Albumin 3.9 Globulin 3.3 Albumin/Globulin Ratio 1.2 Assessment & Plan - Assessment and Plan (Free Text) Plan: Bronchitis Afebrile, tachycardic, no leukocytosis or left shift CXR: Unremarkable CTA Chest: No definitive acute CT finding to correspond to reported history. Discharged with Doxycycline 100mg PO Q12 x 5 days, instructed to take OTC Robitussin Hx AFib Patient instructed to continue home medications, with the addition of decreasing the home dose of digoxin (0.25 to now 0.125mg PO daily). Hx HTN Patient was discharged after being evaluated in the ED. DW Ifrah Turner DO, PGY-1 <Rodrigo Verdin P - Last Filed: 05/12/17 08:25> Results - Vital Signs Recent Vital Signs: Last Vital Signs Temp 98.7 F 05/12/17 02:00 Pulse 107 H 05/12/17 02:00 Resp 20 05/12/17 02:00 BP 135/78 05/12/17 02:00 Pulse Ox 97 05/12/17 05:02 - Labs Result Diagrams: 05/11/17 20:19 05/11/17 20:19 Labs: Laboratory Results - last 24 hr 05/11/17 05/11/17 05/11/17 20:19 20:19 20:19 WBC 6.1 RBC 4.25 Hgb 13.3 Hct 39.9 MCV 93.8 MCH 31.2 H MCHC 33.2 RDW 14.9 H Plt Count 236 MPV 9.0 Neut % (Auto) 63.6 Lymph % (Auto) 21.8 [place] % (Auto) 8.8 Eos % (Auto) 4.7 H Baso % (Auto) 1.1 Neut # 3.9 Lymph # 1.3 [place] # 0.5 Eos # 0.3 Baso # 0.1 D-Dimer, Quantitative > 5250 H Sodium 141 Potassium 4.0 Chloride 104 Carbon Dioxide 31 H Anion Gap 11 BUN 24 H Creatinine 0.9 Est GFR ( Amer) > 60 Est GFR (Non-Af Amer) > 60 Random Glucose 125 H Calcium 9.0 Total Bilirubin 0.3 AST 23 ALT 38 Alkaline Phosphatase 63 Troponin I < 0.0120 NT-Pro-B Natriuret Pep 2440 H Total Protein 7.1 Albumin 3.9 Globulin 3.3 Albumin/Globulin Ratio 1.2 Attending/Attestation - Attestation I have personally seen and examined this patient.: Yes I have fully participated in the care of the patient.: Yes I have reviewed all pertinent clinical information: Yes Notes (Text): Patient presented with symptoms of cough, congestion, sore throat for 5 days, also daughter mentioned has not been giving digoxin 0.25mg daily as she was worried about hr slow down on her eval at home goes lowest down to mid 60's then up in 100. CXR was poor inspiratory effort, spo2 on ra was 94%, hr in 90- 100 range at time of eval. D/w daughter suspected symptoms as viral bronchitis ordered prophylactic doxycycline, robitussin dm, and continue home meds but reduce dig dose to 0.125mg and f/u with pmd. Also to mentioned CTA pe study ordered by ER after elevated ddimer didn't show pe in any big vessels, no pna. Patient is on eliquis for afib which she will continue.
--- NOTE | 2017-05-11 23:04 | CP.PCM.DIS ---
<Ifrah Cano - Last Filed: 05/12/17 03:41> Provider - Provider Date of Admission: 05/11/17 21:25 Attending physician: Rodrigo Verdin MD Time Spent in preparation of Discharge (in minutes): 55 Hospital Course - Lab Results Lab Results: Most Recent Lab Values WBC 6.1 K/uL (4.8-10.8) 05/11/17 20:19 RBC 4.25 Mil/uL (3.80-5.20) 05/11/17 20:19 Hgb 13.3 g/dL (11.0-16.0) 05/11/17 20:19 Hct 39.9 % (34.0-47.0) 05/11/17 20:19 MCV 93.8 fL (81.0-99.0) 05/11/17 20:19 MCH 31.2 pg (27.0-31.0) H 05/11/17 20:19 MCHC 33.2 g/dL (33.0-37.0) 05/11/17 20:19 RDW 14.9 % (11.5-14.5) H 05/11/17 20:19 Plt Count 236 K/uL (130-400) 05/11/17 20:19 MPV 9.0 fL (7.2-11.7) 05/11/17 20:19 Neut % (Auto) 63.6 % (50.0-75.0) 05/11/17 20:19 Lymph % (Auto) 21.8 % (20.0-40.0) 05/11/17 20:19 Young % (Auto) 8.8 % (0.0-10.0) 05/11/17 20:19 Eos % (Auto) 4.7 % (0.0-4.0) H 05/11/17 20:19 Baso % (Auto) 1.1 % (0.0-2.0) 05/11/17 20:19 Neut # 3.9 K/uL (1.8-7.0) 05/11/17 20:19 Lymph # 1.3 K/uL (1.0-4.3) 05/11/17 20:19 Young # 0.5 K/uL (0.0-0.8) 05/11/17 20:19 Eos # 0.3 K/uL (0.0-0.7) 05/11/17 20:19 Baso # 0.1 K/uL (0.0-0.2) 05/11/17 20:19 D-Dimer, Quantitative > 5250 ng/mlDDU (0-243) H 05/11/17 20:19 Sodium 141 mmol/L (132-148) 05/11/17 20:19 Potassium 4.0 mmol/L (3.6-5.2) 05/11/17 20:19 Chloride 104 mmol/L (98-107) 05/11/17 20:19 Carbon Dioxide 31 mmol/L (22-30) H 05/11/17 20:19 Anion Gap 11 (10-20) 05/11/17 20:19 BUN 24 mg/dL (7-17) H 05/11/17 20:19 Creatinine 0.9 mg/dL (0.7-1.2) 05/11/17 20:19 Est GFR ( Amer) > 60 05/11/17 20:19 Est GFR (Non-Af Amer) > 60 05/11/17 20:19 Random Glucose 125 mg/dL (65-105) H 05/11/17 20:19 Calcium 9.0 mg/dl (8.6-10.4) 05/11/17 20:19 Total Bilirubin 0.3 mg/dL (0.2-1.3) 05/11/17 20:19 AST 23 U/L (14-36) 05/11/17 20:19 ALT 38 U/L (9-52) 05/11/17 20:19 Alkaline Phosphatase 63 U/L (38-126) 05/11/17 20:19 Troponin I < 0.0120 ng/mL (0.00-0.120) 05/11/17 20:19 NT-Pro-B Natriuret Pep 2440 pg/mL (0-900) H 05/11/17 20:19 Total Protein 7.1 g/dL (6.3-8.3) 05/11/17 20:19 Albumin 3.9 g/dL (3.5-5.0) 05/11/17 20:19 Globulin 3.3 gm/dL (2.2-3.9) 05/11/17 20:19 Albumin/Globulin Ratio 1.2 (1.0-2.1) 05/11/17 20:19 - Hospital Course Hospital Course: Upon Admission: CC: SOB, congestion, and cough for the last 5 days. HPI: 76 yo Female with PMHx of Atrial Fibrillation and HTN presents to the ED with SOB, congestion, and cough for the last 5 days. Daughter was at bedside and was providing history and translating for the patient. Patient reports he has felt feverish, productive cough with yellow/ green sputum, with congestion and SOB. She has tried OTC cough syrup with no relief. She admits to associated fatigue. Daughter admits to not giving digoxin for the past 3 days, due to HR being in the low 60s. Denied any sick contacts, received flu vaccine last year. Denied fever, chills, headache, SOB, chest pain, abdominal pain, n/v/ d/c, or urinary symptoms. PMHx: Atrial Fibrillation and HTN PSHx: Denied Meds: As per JUN, reviewed and confirmed All: NKDA SHx: Denied x3 FHx: Sister - cancer PMD: Clinic Throughout Hospital Course: Patient was admitted for concerns of atrial fib with RVR. After examining the patient, it was determined that she can be discharge. Discharged with Doxycycline 100mg PO Q12 x 5 days, instructed to take OTC Robitussin Patient instructed to continue home medications, with the addition of decreasing the home dose of digoxin (0.25 to now 0.125mg PO daily). She is to follow up with PMD in 1 week. This is a brief summary of the patient's hospital course, please review EMR for full record. Discharge Exam - Head Exam Head Exam: NORMAL INSPECTION, NORMOCEPHALIC - Eye Exam Eye Exam: EOMI, Normal appearance, PERRL Pupil Exam: NORMAL ACCOMODATION - ENT Exam ENT Exam: Mucous Membranes Moist, Normal Exam - Respiratory Exam Respiratory Exam: Clear to PA & Lateral, NORMAL BREATHING PATTERN. absent: Decreased Breath Sounds - Cardiovascular Exam Cardiovascular Exam: REGULAR RHYTHM - GI/Abdominal Exam GI & Abdominal Exam: Normal Bowel Sounds, Soft. absent: Distended, Tenderness, Unremarkable - Extremities Exam Extremities exam: normal inspection, pedal pulses present - Neurological Exam Neurological exam: Alert, CN II-XII Intact, Oriented x3 - Psychiatric Exam Psychiatric exam: Normal Affect, Normal Mood - Skin Skin Exam: Dry, Intact, Normal Color, Warm Discharge Plan - Discharge Medications Prescriptions: Digoxin 0.125 mg PO DAILY #30 tab Doxycycline Monohydrate 100 mg PO Q12 #10 capsule Metoprolol Tartrate [Lopressor] 50 mg PO BID #60 tab - Follow Up Plan Condition: FAIR Disposition: HOME/ ROUTINE Additional Instructions: Patient is to continue home medications: Metoprolol, Cardizem, Xarelto, Levothyroxine and Digoxin 0.125mg by mouth daily (please cut the pill in half). Please also take Doxycycline 100mg by mouth twice a day x 5 days and Robitussin for her cough (this can be purchased over the counter). Please follow up with primary care physican within 1 week. Please return to the emergency room if your symptoms worsen. El paciente debe continuar con los medicamentos para el hogar: metoprolol, Cardizem, Xarelto, levotiroxina y digoxina 0.125 mg por va oral diariamente ( por favor, marysol la pldora por la mitad). Por favor, tambin tome doxiciclina 100mg por boca dos veces al da x 5 hart y Robitussin para estrada tos (Usted puede comprar esto sobre el pharma[facility]). Por favor, siga con mdico de atencin primaria en 1 semana. Por favor regrese a la shukri de emergencias si hilda sntomas empeoran. <Rodrigo Verdin - Last Filed: 05/12/17 08:26> Provider - Provider Date of Admission: 05/11/17 21:25 Attending physician: Rodrigo Verdin MD Hospital Course - Lab Results Lab Results: Most Recent Lab Values WBC 6.1 K/uL (4.8-10.8) 05/11/17 20:19 RBC 4.25 Mil/uL (3.80-5.20) 05/11/17 20:19 Hgb 13.3 g/dL (11.0-16.0) 05/11/17 20:19 Hct 39.9 % (34.0-47.0) 05/11/17 20:19 MCV 93.8 fL (81.0-99.0) 05/11/17 20:19 MCH 31.2 pg (27.0-31.0) H 05/11/17 20:19 MCHC 33.2 g/dL (33.0-37.0) 05/11/17 20:19 RDW 14.9 % (11.5-14.5) H 05/11/17 20:19 Plt Count 236 K/uL (130-400) 05/11/17 20:19 MPV 9.0 fL (7.2-11.7) 05/11/17 20:19 Neut % (Auto) 63.6 % (50.0-75.0) 05/11/17 20:19 Lymph % (Auto) 21.8 % (20.0-40.0) 05/11/17 20:19 Young % (Auto) 8.8 % (0.0-10.0) 05/11/17 20:19 Eos % (Auto) 4.7 % (0.0-4.0) H 05/11/17 20:19 Baso % (Auto) 1.1 % (0.0-2.0) 05/11/17 20:19 Neut # 3.9 K/uL (1.8-7.0) 05/11/17 20:19 Lymph # 1.3 K/uL (1.0-4.3) 05/11/17 20:19 Young # 0.5 K/uL (0.0-0.8) 05/11/17 20:19 Eos # 0.3 K/uL (0.0-0.7) 05/11/17 20:19 Baso # 0.1 K/uL (0.0-0.2) 05/11/17 20:19 D-Dimer, Quantitative > 5250 ng/mlDDU (0-243) H 05/11/17 20:19 Sodium 141 mmol/L (132-148) 05/11/17 20:19 Potassium 4.0 mmol/L (3.6-5.2) 05/11/17 20:19 Chloride 104 mmol/L (98-107) 05/11/17 20:19 Carbon Dioxide 31 mmol/L (22-30) H 05/11/17 20:19 Anion Gap 11 (10-20) 05/11/17 20:19 BUN 24 mg/dL (7-17) H 05/11/17 20:19 Creatinine 0.9 mg/dL (0.7-1.2) 05/11/17 20:19 Est GFR ( Amer) > 60 05/11/17 20:19 Est GFR (Non-Af Amer) > 60 05/11/17 20:19 Random Glucose 125 mg/dL (65-105) H 05/11/17 20:19 Calcium 9.0 mg/dl (8.6-10.4) 05/11/17 20:19 Total Bilirubin 0.3 mg/dL (0.2-1.3) 05/11/17 20:19 AST 23 U/L (14-36) 05/11/17 20:19 ALT 38 U/L (9-52) 05/11/17 20:19 Alkaline Phosphatase 63 U/L (38-126) 05/11/17 20:19 Troponin I < 0.0120 ng/mL (0.00-0.120) 05/11/17 20:19 NT-Pro-B Natriuret Pep 2440 pg/mL (0-900) H 05/11/17 20:19 Total Protein 7.1 g/dL (6.3-8.3) 05/11/17 20:19 Albumin 3.9 g/dL (3.5-5.0) 05/11/17 20:19 Globulin 3.3 gm/dL (2.2-3.9) 05/11/17 20:19 Albumin/Globulin Ratio 1.2 (1.0-2.1) 05/11/17 20:19 Attending/Attestation - Attestation I have personally seen and examined this patient.: Yes I have fully participated in the care of the patient.: Yes I have reviewed all pertinent clinical information, including history, physical exam and plan: Yes Notes (Text): 05/12/17 08:25 Patient presented with symptoms of cough, congestion, sore throat for 5 days, also daughter mentioned has not been giving digoxin 0.25mg daily as she was worried about hr slow down on her eval at home goes lowest down to mid 60's then up in 100. CXR was poor inspiratory effort, spo2 on ra was 94%, hr in 90- 100 range at time of eval. D/w daughter suspected symptoms as viral bronchitis ordered prophylactic doxycycline, robitussin dm, and continue home meds but reduce dig dose to 0.125mg and f/u with pmd. Also to mentioned CTA pe study ordered by ER after elevated ddimer didn't show pe in any big vessels, no pna. Patient is on eliquis for afib which she will continue.
[2017-05-11] MEDS ORDERED: Iodixanol 320 MG/ML 100 ML BOTTLE IV ONE (23:29)
--- NOTE | 2017-05-12 00:41 | CT ---
EXAM: CT Angiography Chest With Intravenous Contrast CLINICAL HISTORY: 76 years old, female; Signs and symptoms; Shortness of breath; Additional info: SOB TECHNIQUE: Axial computed tomographic angiography images of the chest with intravenous contrast using pulmonary embolism protocol. All CT scans at this facility use one or more dose reduction techniques, viz.: automated exposure control; ma/kV adjustment per patient size (including targeted exams where dose is matched to indication; i.e. head); or iterative reconstruction technique. MIP reconstructed images were created and reviewed. Coronal and sagittal reformatted images were created and reviewed. CONTRAST: 100 mL of [id number] administered intravenously. COMPARISON: No relevant prior studies available. FINDINGS: Pulmonary arteries: No pulmonary embolism visualized. Artifact limits evaluation of segmental and subsegmental arteries. Aorta: Atherosclerosis. No thoracic aortic aneurysm. Lungs: Atelectasis. No mass. No consolidation. Pleural space: No significant effusion. No pneumothorax. Heart: No cardiomegaly. No significant pericardial effusion. Bones: Degenerative changes. Lymph nodes: Shotty nodes. Small hiatal hernia. IMPRESSION: No definitive acute CT finding to correspond to reported history. Please see details/findings as above.
[2017-05-12 02:06] VITALS: BP 135/78; PULSE 107; TEMP 98.7
[2017-05-12 05:02] VITALS: O2SAT 97
--- NOTE | 2017-05-12 08:31 | RAD ---
Chest x-ray single frontal view History: Shortness of breath. Comparison: None available. Findings: Moderate venous congestion. Patchy bibasilar airspace opacities. Tortuous ectatic aorta. Right hilar prominence. Cardiomegaly. Degenerative changes in the spine with paravertebral osteophytes. Impression: Moderate venous congestion. Patchy bibasilar airspace opacities. Tortuous ectatic aorta. Right hilar prominence. Cardiomegaly.
--- NOTE | 2017-05-12 22:01 | CARD ---
APPROVED REPORT EKG Measurement Heart [id number] <Conclusion> Atrial fibrillation with rapid ventricular response with premature ventricular or aberrantly conducted complexes Nonspecific T wave abnormality Abnormal ECG
== END 2017-05-12 02:00 | disposition home or self-care (01) ==
LOC: C.ER 19:21 → UNDOADMIN 21:25 → C.9E 21:25 → UNDODISIN 22:47 → C.5S 23:17 → C.9E 23:17
DX: I48.0 Paroxysmal atrial fibrillation (principal); I50.9 Heart failure, unspecified; J20.8 Acute bronchitis due to other specified organisms; I11.0 Hypertensive heart disease with heart failure; Z79.01 Long term (current) use of anticoagulants; Z79.899 Other long term (current) drug therapy; Z87.01 Personal history of pneumonia (recurrent)
CPT/HCPCS: 71045; 71275; 80053; 83880; 84484; 85025; 85378; 93005; 96374; 96375; 99285; J1940; Q9967

== ENCOUNTER 2017-08-02 17:55 | Emergency (ER) | payer SELFPAY ==
[2017-08-02 17:55] VITALS: PULSE 116; BMI 33.3
[2017-08-02 18:19] VITALS: TEMP 97.9
[2017-08-02 18:44] LABS: BASO # 0.1 K/uL (0.0-0.2); BASO % 1.2 % (0.0-2.0); EOS # 0.2 K/uL (0.0-0.7); EOS % 2.7 % (0.0-4.0); HEMOGLOBIN 14.2 g/dL (11.0-16.0); LYMPH # 1.5 K/uL (1.0-4.3); LYMPH % 25.2 % (20.0-40.0); MEAN CORPUSCULAR HGB CONC 33.7 g/dL (33.0-37.0); MEAN PLATELET VOLUME 8.4 fL (7.2-11.7); MONO # 0.6 K/uL (0.0-0.8); MONO % 9.8 % (0.0-10.0); NEUT # 3.8 K/uL (1.8-7.0); NEUT % 61.1 % (50.0-75.0); NRBC % 0.1 % (0.0-2.0); RBC 4.57 Mil/uL (3.80-5.20); RED CELL DISTRIBUTION WIDTH 14.7 % (11.5-14.5); WHITE BLOOD COUNT 6.1 K/uL (4.8-10.8)
[2017-08-02 18:58] LABS: ALB/GLOB RATIO 1.1 (1.0-2.1); ALBUMIN 3.8 g/dL (3.5-5.0); ALT/SGPT 28 U/L (9-52); AST/SGOT 29 U/L (14-36); BLOOD UREA NITROGEN 21 mg/dL (7-17); GFR AFRICAN-AMERICAN > 60; GFR NON-AFRICAN AMERICAN > 60
[2017-08-02 19:57] VITALS: O2SAT 95
--- NOTE | 2017-08-02 20:46 | C.PDOC ---
Time Seen by Provider: 08/02/17 18:17 Chief Complaint (Nursing): Headache History Per: Patient, Family Onset/Duration Of Symptoms: Days (1), Gradual Current Symptoms Are (Timing): Still Present Severity: Moderate Quality: "Pain" Associated Symptoms: Nausea. denies: Photophobia, Blurred Vision, Vomiting, Extremity Weakness Additional History Per: Prior Records Past Medical History Reviewed: Historical Data, Nursing Documentation, Vital Signs Vital Signs: Last Vital Signs Temp 97.9 F 08/02/17 18:13 Pulse 92 H 08/02/17 19:56 Resp 20 08/02/17 19:56 BP 138/78 08/02/17 19:56 Pulse Ox 95 08/02/17 19:56 - Medical History PMH: Atrial Fibrillation, Cardia Arrhythmia, HTN, Hypothyroidism, Pneumonia Family History: States: Unknown Family Hx - Social History Hx Alcohol Use: No Hx Substance Use: No - Immunization History Hx Tetanus Toxoid Vaccination: Yes Hx Influenza Vaccination: Yes Hx Pneumococcal Vaccination: No Review Of Systems Except As Marked, All Systems Reviewed And Found Negative. Constitutional: Negative for: Fever, Weakness Eyes: Negative for: Vision Change Cardiovascular: Negative for: Chest Pain Respiratory: Negative for: Shortness of Breath Gastrointestinal: Negative for: Vomiting, Abdominal Pain Skin: Negative for: Rash Neurological: Positive for: Headache. Negative for: Weakness, Numbness, Incoordination, Change in Speech, Confusion, Seizures, Altered Mental Status Physical Exam - Physical Exam Appears: Non-toxic, No Acute Distress Skin: Normal Color, Warm, Dry, No Rash Head: Atraumatic, Normacephalic Eye(s): bilateral: PERRL, EOMI Neck: Normal ROM, Supple Cardiovascular: Rhythm Regular Respiratory: Normal Breath Sounds, No Accessory Muscle Use Gastrointestinal/Abdominal: Soft, No Tenderness Extremity: Normal ROM Neurological/Psych: Oriented x3, Normal Speech, Normal Cognition, No Cerebellar Signs, Normal Motor, Normal Sensation ED Course And Treatment - Laboratory Results Result Diagrams: 08/02/17 18:41 08/02/17 18:41 Lab Interpretation: No Acute Changes ECG: Interpreted By Me, Viewed By Me ECG Rhythm: Atrial Fibrillation, Nonspecific Changes ECG Interpretation: No Changes From Prior Rate From EC O2 Sat by Pulse Oximetry: 95 Pulse Ox Interpretation: Normal - CT Scan/US CT head Other Rad Studies (CT/US): Read By Radiologist, Radiology Report Reviewed CT/US Interpretation: No evidence of acute intracranial abnormality. Progress Note: Headache resolved. Reassessment Condition: Improved Progress - Interventions Interventions:: Observation - Medications Administered Intravenous: Antiemetic - Data Reviewed Data Reviewed: Lab, Diagnostic imaging, EKG, Old records - Patient Status Patient status: Completely improved - Continuity of Care Discussed patient case with:: Patient, Family-HIPPA compliant, ED Nurse - Patient Plan Patient Plan: Discharge, F/U with PCP, Continue present meds Disposition Counseled Patient/Family Regarding: Studies Performed, Diagnosis, Need For Followup - Disposition Referrals: [facility] [Outside] Disposition: HOME/ ROUTINE Disposition Time: 20:47 Condition: IMPROVED Additional Instructions: Follow up with your doctor or in the clinic. Return to the ER if you develop weakness, numbness, vomiting, severe headache, worsening of symptoms or if you have any other concerns. Instructions: Headache, Adult (DC) Print Language: [place] - Clinical Impression Clinical Impression: Headache
[2017-08-02 20:48] VITALS: BP 145/92; PULSE 84; RESP 18
--- NOTE | 2017-08-03 07:14 | CT ---
PROCEDURE: CT HEAD WITHOUT CONTRAST. HISTORY: Headache, on anticoagulation due to Afib. COMPARISON: None available. TECHNIQUE: Axial computed tomography images were obtained through the head/brain without intravenous contrast. Radiation dose: Total exam DLP = 818 mGy-cm. This CT exam was performed using one or more of the following dose reduction techniques: Automated exposure control, adjustment of the mA and/or kV according to patient size, and/or use of iterative reconstruction technique. FINDINGS: HEMORRHAGE: No intracranial hemorrhage. BRAIN: Proportionate prominence of the sulci and ventricles compatible with age related involutional change. Scattered focal lucencies in the subcortical and periventricular white matter suggestive for chronic microvascular ischemic change. Focal hypodensity in the left basal ganglia suggestive for lacunar infarct. VENTRICLES: Unremarkable. No hydrocephalus. CALVARIUM: Unremarkable. PARANASAL SINUSES: Mucosal thickening in a right ethmoid air cell. MASTOID AIR CELLS: Unremarkable as visualized. No inflammatory changes. OTHER FINDINGS: Intracranial vascular calcifications. IMPRESSION: No acute intracranial abnormality. Chronic microvascular ischemic changes. Age related involutional changes. Small left basal ganglia lacunar infarct. Intracranial vascular calcifications. Sinus mucosal disease. If symptoms persist, consider further evaluation with MRI. These findings were preliminarily reported at 8:39 p.m. on 08/02/[address] Evaristo Murphy from [facility].
== END 2017-08-02 20:47 | disposition home or self-care (01) ==
LOC: C.ER 17:55
DX: R51 Headache (principal)
CPT/HCPCS: 70450; 80053; 80162; 82948; 83735; 84484; 85025; 96374; 99285; J2765